=== PATIENT | male | born 1950 | race Asian ===

== ENCOUNTER 2016-11-05 14:07 | Inpatient (IN) | payer OTHER ==
[~2016-11-05] VITALS: Ht 165.1 cm; Wt 81.6 kg
[2016-11-05] MEDS ORDERED: MILK OF MA400 MG/51 ORAL (14:38)
[2016-11-05] MEDS ORDERED: FUROSEMIDE40 MG ORAL (14:38)
[2016-11-05] MEDS ORDERED: BISACODYL10 M1 RC (14:38)
[2016-11-05] MEDS ORDERED: DOCUSATE SODIU100 MG ORAL (14:38)
[2016-11-05] MEDS ORDERED: SPIRONOLACTONE25 MG ORAL (14:38)
[2016-11-05] MEDS ORDERED: ATIVAN0.5 MG ORAL (14:38)
[2016-11-05 15:54] VITALS: BP 94/72
[2016-11-05 16:01] LABS: TROPONIN I < 0.30 ng/mL (<=0.30)
[2016-11-05 16:04] LABS: ALBUMIN/GLOBULIN RATIO 1.1 (1.0-2.7); CALCIUM 9.2 mg/dL (8.6-10.2); GLOMERULAR FILTRATION RATE 33.8 mL/min (>60); POTASSIUM 4.6 mEQ/L (3.4-4.9); TOTAL PROTEIN 6.8 g/dL (6.6-8.7)
[2016-11-05 16:10] LABS: BASOPHILS % (AUTO) 1.2 % (0.0-2.0); CKMB 8.5 ng/mL (< 6.7); EOSINOPHILS % (AUTO) 0.4 % (0.0-3.0); LYMPHOCYTES % (AUTO) 21.5 % (20.0-45.0); MEAN CORPUSCULAR HEMOGLOBIN 32.2 PG (27.0-31.0); MEAN CORPUSCULAR HGB CONC 33.6 G/DL (32.0-36.0); MEAN CORPUSCULAR VOLUME 96 FL (80-99); MEAN PLATELET VOLUME 8.1 FL (6.5-10.1); MONOCYTES % (AUTO) 5.3 % (1.0-10.0); NEUTROPHILS % (AUTO) 71.6 % (45.0-75.0); PLATELET COUNT 191 K/UL (150-450); RED CELL DISTRIBUTION WIDTH 13.8 % (11.6-14.8); WHITE BLOOD COUNT 5.9 K/UL (4.8-10.8)
[2016-11-05 16:12] LABS: REFLEX LACTIC ACID YES OR NO YES
[2016-11-05 16:45] LABS: APPEARANCE,URINE CLEAR; KETONES,URINE NEGATIVE (NEGATIVE); LEUKOCYTE ESTERASE ,URINE NEGATIVE (NEGATIVE); NITRITE,URINE NEGATIVE (NEGATIVE); PH,URINE 5 (4.5-8.0); PROTEIN,URINE 1+ (NEGATIVE); UROBILINOGEN,URINE NORMAL MG/DL (0.0-1.0)
[2016-11-05] MEDS ORDERED: Ampicillin/Sulbactam Sod 3 GM in NS 110 ML IVPB ONE (16:45)
[2016-11-05] MEDS ORDERED: Unasyn 3gm Inj ONE (16:54)
[2016-11-05 16:55] LABS: HYALINE CASTS, URINE 60-80 /LPF; RBC,URINE 0-2 /HPF (0 - 0); WBC,URINE 0-2 /HPF (0 - 0)
[2016-11-05 16:56] LABS: BACTERIA,URINE FEW /HPF
[2016-11-05 17:11] VITALS: BP 99/78
[2016-11-05] MEDS ORDERED: LORazepam 0.5mg tab ORAL PRN (17:45)
[2016-11-05 18:48] VITALS: BP 119/85
--- NOTE | 2016-11-05 19:40 | Emergency Room Report ---
History of Present Illness General Chief Complaint: General Complaint Source: Patient Present Illness HPI 65-year-old male presents ED for evaluation. Patient is complaining of shortness of breath which started a few days ago. Also complaining swelling to his legs. Patient does have history of cellulitis to the legs and is currently being treated in the [facility]. Patient denies any chest pain. Denies any fevers or chills. No other aggravating or leading factors. Denies any other associated symptoms Allergies: Coded Allergies: No Known Allergies (Unverified , 11/05/16) Patient History Past Medical History: DM, HTN Past Surgical History: none Pertinent Family History: none Social History: Denies: smoking, alcohol use, drug use Immunizations: UTD Reviewed Nursing Documentation: PMH: Agreed, PSxH: Agreed Nursing Documentation-PMH Hx Cardiac Problems: Yes - high cholesterol Hx Hypertension: Yes Hx Diabetes: Yes Review of Systems All Other Systems: negative except mentioned in HPI Physical Exam Vital Signs Date Time Temp Pulse Resp B/P (MAP) Pulse Ox O2 Delivery O2 Flow Rate FiO2 11/05/16 13:48 96 18 119/80 97 Room Air 11/05/16 15:54 98.0 Sp02 EP Interpretation: reviewed, normal General Appearance: no apparent distress, alert, GCS 15, non-toxic Head: normocephalic, atraumatic Eyes: bilateral eye normal inspection, bilateral eye PERRL ENT: hearing grossly normal, normal pharynx, no angioedema, normal voice Neck: full range of motion, supple/symm/no masses Respiratory: chest non-tender, lungs clear, normal breath sounds, speaking full sentences Cardiovascular #1: regular rate, rhythm, no edema Cardiovascular #2: 2+ carotid (R), 2+ carotid (L), 2+ radial (R), 2+ radial (L) , 2+ dorsalis pedis (R), 2+ dorsalis pedis (L) Gastrointestinal: normal bowel sounds, non tender, soft, non-distended, no guarding, no rebound Rectal: deferred Genitourinary: normal inspection, no CVA tenderness Musculoskeletal: back normal, gait/station normal, normal range of motion, swelling - 2+ pitting edema b/l LE Neurologic: alert, oriented x3, responsive, motor strength/tone normal, sensory intact, speech normal Psychiatric: judgement/insight normal, memory normal, mood/affect normal, no suicidal/homicidal ideation Reflexes: 3+ bicep (R), 3+ bicep (L), 3+ tricep (R), 3+ tricep (L), 3+ knee (R) , 3+ knee (L) Skin: normal color, no rash, warm/dry, well hydrated, other - induration/ erythema bilateral LE Lymphatic: no adenopathy Medical Decision Making Diagnostic Impression: Primary Impression: Encounter for generalized patient complaints Additional Impressions: CHF exacerbation Qualified Codes: I50.9 - Heart failure, unspecified Sepsis Qualified Codes: A41.9 - Sepsis, unspecified organism ARF (acute renal failure) Qualified Codes: N17.9 - Acute kidney failure, unspecified Bilateral lower leg cellulitis ER Course Hospital Course 65-year-old male presents ED complaining of shortness of breath, leg swelling Differential diagnoses include: TX/unstable angina, contusion, muscle strain, PTX, rib fracture Clinical course Patient placed on stretcher. on gambling monitor. After initial history and physical I ordered labs, EKG, chest x-ray, labs reviewed- no leukocytosis, hemoglobin/hematocrit stable, BUN/creatinine elevated, troponins negative, BNP greater than 5000, lactate >4 Chest x-ray- pulmonary congestion EKG - sinus tachycardia Antibiotics given. Lasix given. Patient not given 30 mL per KG fluid bolus because of his severe congestive heart failure and fluid overload Case discussed with Dr. Barrera and he agreed to accept the patient to his service for further care and support I. I feel this is a highly complex case requiring extensive working including EKG/Rhythm strip, Xray/CT/US, Blood/urine lab work, repeat exams while in ED, and administration of strong opiates/narcotics for pain control, admission to hospital or close patient follow up. Diagnosis - CHF exacerbation, sepsis, ARF, bilateral LE cellulitis admitted to telemetry in serious condition Labs Test 11/05/16 14:55 11/05/16 15:58 11/05/16 16:06 White Blood Count 5.9 K/UL (4.8-10.8) Red Blood Count 4.40 M/UL (4.70-6.10) Hemoglobin 14.1 G/DL (14.2-18.0) Hematocrit 42.1 % (42.0-52.0) Mean Corpuscular Volume 96 FL (80-99) Mean Corpuscular Hemoglobin 32.2 PG (27.0-31.0) Mean Corpuscular Hemoglobin Concent 33.6 G/DL (32.0-36.0) Red Cell Distribution Width 13.8 % (11.6-14.8) Platelet Count 191 K/UL (150-450) Mean Platelet Volume 8.1 FL (6.5-10.1) Neutrophils (%) (Auto) 71.6 % (45.0-75.0) Lymphocytes (%) (Auto) 21.5 % (20.0-45.0) Monocytes (%) (Auto) 5.3 % (1.0-10.0) Eosinophils (%) (Auto) 0.4 % (0.0-3.0) Basophils (%) (Auto) 1.2 % (0.0-2.0) Sodium Level 123 mEQ/L (135-145) Potassium Level 4.6 mEQ/L (3.4-4.9) Chloride Level 82 mEQ/L (98-107) Carbon Dioxide Level 23 mEQ/L (20-30) Anion Gap 18 (5-15) Blood Urea Nitrogen 37 mg/dL (7-23) Creatinine 2.0 mg/dL (0.7-1.2) Estimat Glomerular Filtration Rate 33.8 mL/min (>60) Glucose Level 216 mg/dL (74-106) Lactic Acid Level 4.80 mmol/L (0.66-2.22) Calcium Level 9.2 mg/dL (8.6-10.2) Total Bilirubin 0.8 mg/dL (0.0-1.2) Aspartate Amino Transf (AST/SGOT) 81 U/L (5-40) Alanine Aminotransferase (ALT/SGPT) 67 U/L (3-41) Alkaline Phosphatase 160 U/L (40-129) Total Creatine Kinase 137 U/L (38-174) Creatine Kinase MB 8.5 ng/mL (< 6.7) Creatine Kinase MB Relative Index 6.2 Troponin I < 0.30 ng/mL (<=0.30) Pro-B-Type Natriuretic Peptide 5957 pg/mL (0-125) Total Protein 6.8 g/dL (6.6-8.7) Albumin 3.6 g/dL (3.5-5.2) Globulin 3.2 g/dL Albumin/Globulin Ratio 1.1 (1.0-2.7) Urine Color Yellow Urine Appearance Clear Urine pH 5 (4.5-8.0) Urine Specific [place] 1.020 (1.005-1.035) Urine Protein 1+ (NEGATIVE) Urine Glucose (UA) Negative (NEGATIVE) Urine Ketones Negative (NEGATIVE) Urine Occult Blood Negative (NEGATIVE) Urine Nitrite Negative (NEGATIVE) Urine Bilirubin Negative (NEGATIVE) Urine Urobilinogen Normal MG/DL (0.0-1.0) Urine Leukocyte Esterase Negative (NEGATIVE) Urine RBC 0-2 /HPF (0 - 0) Urine WBC 0-2 /HPF (0 - 0) Urine Squamous Epithelial Cells None /LPF (NONE/OCC) Urine Bacteria Few /HPF (NONE) Urine Hyaline Casts 60-80 /LPF (NONE) EKG Diagnostic Results Rate: tachycardiac Rhythm: NSR ST Segments: no acute changes ASA given to the pt in ED: No Rhythm Strip Diag. Results EP Interpretation: yes Rhythm: NSR, no PVC's, no ectopy Chest X-Ray Diagnostic Results Chest X-Ray Diagnostic Results : Chest X-Ray Ordered: Yes # of Views/Limited/Complete: 1 View Indication: Shortness of Breath EP Interpretation: Yes Interpretation: no pneumothorax, no acute cardiopulmonary disease, other - cardiomegaly. bilateral effusion Impression: Other - cardiomegaly with congestion Electronically Signed by: Electronically signed by Deon Ortez MD Last Vital Signs Date Time Temp Pulse Resp B/P (MAP) Pulse Ox O2 Delivery O2 Flow Rate FiO2 11/05/16 18:48 97.7 117 24 119/85 100 Room Air Status: improved Disposition: ADMITTED INPATIENT Condition: Serious Referrals: NON PHYSICIAN (PCP) DEON ORTEZ M.D. Nov 05, 2016 19:40
[2016-11-05 20:00] VITALS: BP 103/66
[2016-11-05] MEDS ORDERED: Vancomycin 1.5 GM/D5W 250ML IVPB ONE (20:00)
[2016-11-05] MEDS: Aspirin Baby 81mg ORAL SCH (20:16)
[2016-11-05] MEDS: Norco 5mg/325mg tab ORAL PRN (20:18)
[2016-11-05] MEDS ORDERED: Milk of Magnesia 30ml Ud ORAL PRN (21:00)
[2016-11-05] MEDS: Insulin NovoLOG Flexpen S/S (Mod) SUBQ SCH (21:10)
[2016-11-05] MEDS: Heparin 5000 units/ml inj SUBQ SCH (21:11)
[2016-11-05] MEDS ORDERED: Cefepime 1gm vial ONE (23:50)
[2016-11-06] VITALS: BP 122/73
[2016-11-06] MEDS: Cefepime HCl 1 GM in D5W 55 ML IVPB SCH ×2 (00:01→23:25)
[2016-11-06] MEDS ORDERED: METFORMIN HCL1000 M1 PO (02:08)
[2016-11-06] MEDS ORDERED: GEMFIBROZIL600 M1 PO (02:08)
[2016-11-06] MEDS ORDERED: QUINAPRIL HCL20 MG PO (02:08)
[2016-11-06] MEDS ORDERED: GLYBURIDE5 MG PO (02:08)
[2016-11-06] MEDS ORDERED: TRIAMTERENE-HC1 EAC5 PO (02:08)
--- NOTE | 2016-11-06 03:30 | Consultation ---
DATE OF CONSULTATION: 11/05/2016 CARDIOLOGY CONSULTATION CONSULTING PHYSICIAN: Hemal Virgen M.D. REQUESTING PHYSICIAN: Alin Alicea M.D. REASON FOR CONSULTATION: Congestive heart failure. History Of Present Illness: This 65-year-old male had a spider bite to his leg several weeks back. He was hospitalized and subsequently discharged to a retirement facility about a week ago. During the course of that period, his condition has worsened. His rash has gotten worse on both legs, his swelling has gotten worse, and he has weeping blisters. He has been increasingly congested and short of breath as well. Past Medical History: Hyperlipidemia, hypertensive heart disease, and type 2 diabetes mellitus. MEDICATIONS: Prior to admission, reviewed and reconciled. ALLERGIES: None. SOCIAL HISTORY: Denies smoking, alcohol, or substance abuse. FAMILY HISTORY: Noncontributory. Review Of Systems: No fevers. No chills. No cough or sputum production. There is no history of seizure or stroke. There is no history of thyroid disorder. His diabetes is managed with diet and oral therapy at times. He is unaware of his cholesterol level. He has not had any change in bowel habits. There is no history of prostate cancer. He denies prior history of heart disease that he is aware of. There is no history of blood clots in the legs. PHYSICAL EXAMINATION: General: He appears older than his stated age. He is in moderate distress. Vital Signs: Blood pressure 119/80, pulse 96, respirations 18, afebrile, and room air oxygen saturation 97%. HEENT: Normocephalic and atraumatic. Conjunctivae are pink. Sclerae are anicteric. Oropharynx clear. Neck: Supple. Jugular venous pressure is slightly elevated, but exam is limited. Lungs: Revealed diminished breath sounds. No wheezes or rales. There is no accessory muscle use. Cardiac: Regular rhythm and rate. Normal S1 and S2. There is a fourth heart sound. Point of maximum impulse laterally displaced. ABDOMEN: Soft and obese with mild ascites. Extremities: Revealed 3+ to 4+ bilateral pitting edema to the scrotum. Skin: Notable for weeping bullous rash on both lower extremities and induration distally. There is no ischemic change of the digits. NEUROLOGIC: Otherwise nonfocal. Gait is not assessed. Laboratory and diagnostic Data: White count 5.9 and hemoglobin is 14.1. Urinalysis, no active sediment, but there are casts. Sodium 123, potassium 4.6, chloride 82, bicarbonate 23, BUN 37, creatinine 2.0, and glucose 216. Lactic acid 4.8. AST and ALT are 81 and 67 with alkaline phosphatase of 160 and pro-natriuretic peptide of almost 6000. Troponin negative. Albumin 3.6. Chest x-ray reveals pulmonary venous congestion. EKG reveals sinus tachycardia with no acute ST changes. IMPRESSION: 1. Bilateral lower extremity cellulitis. 2. Acute systolic congestive heart failure. 3. Lower extremity venous stasis. 4. Hyponatremia. 5. Hypochloremia may be due to Aldactone. 6. Type 2 diabetes mellitus. 7. History of hypertension. 8. Renal failure, acute versus chronic. 9. Probable component of obstructive uropathy due to edema involving penis. 10. Secondary sinus tachycardia. PLAN: 1. Cardiac monitoring. 2. Ward catheter. 3. IV diuretic therapy. 4. Monitor electrolytes closely as well as renal function. 5. IV antibiotics. 6. Skin care. 7. Titration of anti-failure regimen based on clinical parameters. 8. Echocardiogram to assess left ventricular function. 9. Venous duplex scan if not recently done to assess for possible DVT in this clinical setting. Hemal Virgen M.D. DR: JAZIEL JOB#: [id number] CC: CLAIRE
[2016-11-06] MEDS: Norco 5mg/325mg tab ORAL PRN ×3 (03:51→21:35)
[2016-11-06 04:00] VITALS: BP 102/68
[2016-11-06] MEDS: Insulin NovoLOG Flexpen S/S (Mod) SUBQ SCH ×4 (06:03→21:34)
[2016-11-06] MEDS: Heparin 5000 units/ml inj SUBQ SCH ×3 (06:03→21:35)
[2016-11-06] MEDS ORDERED: NovoLOG Insulin Flexpen SUBQ SCH (06:30)
[2016-11-06 07:18] LABS: BASOPHILS % (AUTO) 1.7 % (0.0-2.0); EOSINOPHILS % (AUTO) 1.1 % (0.0-3.0); LYMPHOCYTES % (AUTO) 25.2 % (20.0-45.0); MEAN CORPUSCULAR HEMOGLOBIN 31.4 PG (27.0-31.0); MEAN CORPUSCULAR HGB CONC 33.3 G/DL (32.0-36.0); MEAN CORPUSCULAR VOLUME 94 FL (80-99); MEAN PLATELET VOLUME 7.2 FL (6.5-10.1); PLATELET COUNT 204 K/UL (150-450); RED BLOOD COUNT 4.51 M/UL (4.70-6.10); RED CELL DISTRIBUTION WIDTH 14.3 % (11.6-14.8); WHITE BLOOD COUNT 7.2 K/UL (4.8-10.8)
[2016-11-06 07:39] LABS: ALBUMIN/GLOBULIN RATIO 1.3 (1.0-2.7); CALCIUM 11.3 mg/dL (8.6-10.2); CREATININE 2.1 mg/dL (0.7-1.2); POTASSIUM 4.8 mEQ/L (3.4-4.9)
[2016-11-06 07:51] LABS: THYROID STIMULATING HORMONE 2.66 uIU/mL (0.300-4.500)
[2016-11-06 08:00] VITALS: BP 101/70
[2016-11-06] MEDS: Aspirin Baby 81mg ORAL SCH (09:09)
--- NOTE | 2016-11-06 09:48 | Diagnostic Imaging Report ---
Indication: SOB Technique: One view of the chest Comparison: none Findings: The heart is enlarged. There are bilateral pleural effusions. There is mild interstitial congestion Impression: Evidence of congestive heart failure, with cardiomegaly, mild interstitial congestion, bilateral pleural effusions This agrees with the preliminary interpretation provided by the emergency room physician
[2016-11-06] MEDS ORDERED: NS 275ml ONE (10:59)
[2016-11-06] MEDS ORDERED: Tubing IV Secondary IV ONE (10:59)
--- NOTE | 2016-11-06 11:22 | Wound Care Consultation ---
Wound Assessment Wound Assessment #1: Wound Number: 1 Wound Present on Admission: Yes New Wound: No Status Change of Wound: No Wound Location Body Site Modif: right, lower Wound Location Body Site: leg Wound Type: blister - large ruptured and weeping blisters Nisha Test: Does not Nisha Edema Degree: 4+ marked deep indentation Percent of Wound [place]/Red: 100 Wound Drainage Amount: Copious - clear Wound Drainage Odor: None/Absent Tissue Surrounding Wound: Edematous - macerated Wound General Appearance: Reddened, Draining - weeping Wound Assessment #2: Wound Number: 2 Wound Present on Admission: Yes New Wound: No Status Change of Wound: No Wound Location Body Site Modif: left, lower Wound Location Body Site: leg Wound Type: other - open wound with slough present, scattered wepping blisters and ruptured blisters. Nisha Test: Does not Nisha Edema Degree: 4+ marked deep indentation Wound Thickness: Full Thickness Wound Length: 6.5 Wound Width: 5.0 Wound Depth: utd Percent of Wound [place]/Red: 20 Percent of Wound Bed Yellow/Wh: 80 Wound Drainage Description: Clear Wound Drainage Amount: Copious Wound Drainage Odor: None/Absent Tissue Surrounding Wound: Edematous - macerated Wound General Appearance: Reddened, Draining, Necrotic - yellow slough Wound Comment #1 Right lower leg ruptured and weeping large blisters #2 Left lower leg open wound unstageable, and left lower leg scattered ruptured weeping blisters. Recommendation. -Follow up with MD for any furthers for cellulitis of BLE. -Local wound care as ordered. -Turn and reposition. -Keep lower extremities clean and dry. -Optimize nutrition. -Keep clean and dry. -Assess and notify MD for any changes of condition to skin noted. ALISON WALKER Nov 06, 2016 11:22
--- NOTE | 2016-11-06 11:35 | Diagnostic Imaging Report ---
Indication: SOB Technique: One view of the chest Comparison: 11/05/2016 Findings: Yomi, bilateral small moderate pleural effusions, left basilar atelectasis, mild interstitial congestion are all unchanged from the previous exam Impression: Unchanged, over one day, findings as above.
[2016-11-06 12:00] VITALS: BP 99/74
[2016-11-06 16:00] VITALS: BP 107/65
[2016-11-06 16:52] LABS: APPEARANCE,URINE CLEAR; KETONES,URINE NEGATIVE (NEGATIVE); LEUKOCYTE ESTERASE ,URINE NEGATIVE (NEGATIVE); NITRITE,URINE NEGATIVE (NEGATIVE); PH,URINE 5 (4.5-8.0); PROTEIN,URINE 2+ (NEGATIVE); UROBILINOGEN,URINE NORMAL MG/DL (0.0-1.0)
--- NOTE | 2016-11-06 17:00 | History and Physical Report ---
DATE OF ADMISSION: 11/05/2016 History Of Present Illness: This is a 65-year-old male, who reports history of developing some sort of infection all over his leg several weeks ago. He states he thought he was bitten by a spider on the left ankle on 10/12/2016 and was then seen at [facility]. Several days later, he also noted that his sodium was low, he was given IV treatments. He was discharged on 10/16/2016; however, he returned back to that hospital the following day. He was then discharged to nursing facility with ongoing blistering of his lower extremities. The patient states he has been getting more short of breath and all his tests have been negative in terms of renal function. Past History: Hyperlipidemia, hypertensive cardiovascular heart disease, diabetes mellitus. He does not know about a history of heart failure or renal problems. Home Medications: Gemfibrozil, metformin, glyburide, quinapril, and triamterene HCTZ. ALLERGIES: None. SOCIAL HISTORY: No history of alcohol or tobacco usage. FAMILY HISTORY: Noncontributory. Review Of Systems: Denies any headaches, hematemesis, melena, hematochezia, night sweats, or weight loss. PHYSICAL EXAMINATION: GENERAL: Reveals a 65-year-old male. HEENT: Unremarkable. CHEST: Diminished breath sounds bilaterally. HEART: Heart sounds normal. ABDOMEN: Soft. Genitourinary: There is 3+ edema bilaterally up to the scrotum. His penis is swollen. Scrotum is swollen. Extremities: There is a weeping bullous rash in both lower extremities. Laboratory And Diagnostic Data: Lab testing was notable for hemoglobin of 14, otherwise CBC is normal. Sodium this morning is 119 and creatinine is 2.1. Calcium is 11.3. Lactic acid 4.6. AST and ALT mildly elevated. Alkaline phosphatase 140. Albumin is 4. X-ray of the chest with evidence of cardiomegaly and congestive heart failure. IMPRESSION: 1. New onset congestive heart failure. 2. Diabetes. 3. Renal dysfunction. 4. Hyponatremia. 5. Hypochloremia. 6. Bilateral lower extremity cellulitis. 7. Lactic acidemia. Discussion: We will admit to the hospital. I note that previous ultrasound had shown right renal calculus 6 mm and a left renal cyst. His BNP has been elevated as an outpatient as well. I suspect he has congestive heart failure. The patient will require dialysis. I will consult Nephrology as well. He is hyponatremic, which will be a challenge in terms of medical management. Continue IV antibiotics. The patient has been started on cefepime and vancomycin. The patient may need 3% infusion however with his heart failure this may be problematic. Dialysis may be a consideration. The patient is Full Code. Discussed with the patient and . Alin Alicea M.D. DR: JOHN JOB#: [id number] CC:
[2016-11-06 17:10] LABS: BACTERIA,URINE FEW /HPF; RBC,URINE 0-2 /HPF (0 - 0); WBC,URINE 0-2 /HPF (0 - 0)
[2016-11-06 17:11] LABS: CREATININE, RANDOM URINE 145.8 mg/dL
--- NOTE | 2016-11-06 18:16 | Cardiology Report ---
APPROVED REPORT EXAM: Two-dimensional and M-mode echocardiogram with Doppler and color Doppler. INDICATION Congestive Heart Failure M-Mode DIMENSIONS IVSd0.9 (0.7-1.1cm)Left Atrium (MM)5.0 (1.6-4.0cm) LVDd5.5 (3.5-5.6cm)Aortic Root2.8 (2.0-3.7cm) PWd0.9 (0.7-1.1cm)Aortic Cusp Exc.0.8 (1.5-2.0cm) LVDs4.9 (2.5-4.0cm) PWs1.0 cm Technically limited and difficult study due to poor acoustical windows. Severe left ventricular enlargement. Global left ventricular hypokinesia. Left ventricular ejection fraction is estimated at 10%. Ischemic cardiomyopathy cannot be excluded. No left ventricular hypertrophy. Large posterior pleural effusion. Moderate left atrial enlargement by 2D. Mild left atrial enlargement by 2D. Aortic valve calcification with decreased cusp excursion c/w aortic stenosis. Thickened mitral valve leaflets with normal excursion. Mild mitral annulus and aortic root calcification. Pulmonic valve is well visualized. Normal tricuspid valve structure. IVC dilated at 2.4cm non-collapsible with respiration indicate increased RA pressure RAP -20 mmHg). A color flow and spectral Doppler study was performed and revealed: Mild aortic regurgitation. Peak aortic valve gradient of 19 mmHg and a mean of 10 mmHg. Aortic valve area 1.1 cm2 calculated by continuity equation, possibly pseudo-stenosis due to decreased LV systolic function. Severe mitral regurgitation. Mitral diastolic velocities suggest reduced left ventricular relaxation c/w diastolic dysfunction grade 3. Severe tricuspid regurgitation. Tricuspid systolic velocities suggests peak right ventricular systolic pressure of 56mmHg. Consistent with Severe pulmonary hypertension. Pulmonic regurgitation present.
--- NOTE | 2016-11-06 19:04 | Cardiology Report ---
APPROVED REPORT EKG Measurement Heart [id number] Sinus tachycardia Left atrial enlargement Incomplete left bundle branch block Abnormal ECG
[2016-11-06 20:48] VITALS: BP 100/65
--- NOTE | 2016-11-06 21:15 | Consultation ---
DATE OF CONSULTATION: 11/06/2016 INFECTIOUS DISEASES CONSULTATION CONSULTING PHYSICIAN: Cj Pfeiffer M.D. REFERRING PHYSICIAN: Alin Alicea M.D. REASON FOR CONSULTATION: Lower extremity cellulitis. History Of Present Illness: This is a 65-year-old gentleman with history of diabetes, hypertension, and hypercholesterolemia who came in with shortness of breath and nausea. He was found to have bilateral lower extremity cellulitis as well as congestive heart failure and an Infectious Diseases consultation has been obtained for antibiotics. PAST MEDICAL HISTORY: 1. History of diabetes. 2. History of hypertension. 3. Hypercholesterolemia. 4. History of cataract surgery. Medications: As an inpatient, he is on cefepime, Lasix, subcutaneous heparin, milk of magnesia, insulin, [place], aspirin, IV vancomycin, Tylenol, and Ativan. ALLERGIES: No known drug allergies. Social History: He used to be a smoker. He does not smoke anymore. No history of alcohol or drug use. FAMILY HISTORY: Positive for pancreatic cancer. Review Of Systems: Respiratory: He denies any fever or chills. He denies any cough. He has shortness of breath. No chest pain. Cardiac: No chest pain. No palpitations. No dizziness. No syncope. Gastrointestinal: He did have nausea. No vomiting. No abdominal pain or diarrhea. PHYSICAL EXAMINATION: Vital Signs: Temperature of 97.3 degrees, T-max of 98 degrees, pulse of 80, respiratory rate of 19, blood pressure 99/74, and O2 saturation of 100%. HEENT: Pupils equally reactive to light and accommodation. Mouth appears clean without thrush. NECK: Supple. No adenopathy. No JVD. CARDIOVASCULAR: Regular rate and rhythm. No murmurs. LUNGS: Clear to auscultation bilaterally. No crackles. No wheezes. ABDOMEN: Soft and nontender. No organomegaly. Extremities: No cyanosis. No clubbing. Edema noted bilaterally. Right leg multiple erythematous ulcers noted. Laboratory Data: White count 7.2, hemoglobin 14.2, hematocrit 42.5, MCV 94, and platelet count of 204,000. Sodium 119, potassium 4.8, chloride 81, bicarbonate 22, BUN 41, creatinine 2.1, glucose 193, calcium 11.3, AST 48, ALT 55, alkaline phosphatase 140, total protein 7, and albumin 4. UA is showing 0 to 2 white cells. Chest x-ray showing evidence of congestive heart failure with mild congestion and pleural effusions. ASSESSMENT: 1. This is a 65-year-old gentleman with history of diabetes, hypertension, and hypercholesterolemia, who comes in with bilateral lower extremity cellulitis. 2. He also has renal failure. 3. Diabetes. PLAN: 1. Continue cefepime. 2. Discontinue vancomycin. 3. We will start the patient on linezolid. 4. We will order leg wound cultures. 5. We will follow up cultures and adjust antibiotics accordingly. I would like to thank Dr. Alicea for this consultation. Cj Pfeiffer M.D. DR: CARMELINA JOB#: [id number] CC: Alin Alicea M.D.; Fax#: [phone]
[2016-11-06] MEDS: Tamsulosin 0.4mg cap ORAL SCH (21:23)
--- NOTE | 2016-11-06 22:15 | Consultation ---
DATE OF CONSULTATION: 11/06/2016 NEPHROLOGY CONSULTATION CONSULTING PHYSICIAN: Davis Mock M.D. REFERRING PHYSICIAN: Alin Alicea M.D. Reason For Consultation: I am asked to evaluate the patient for renal failure and hyponatremia. History Of Present Illness: The patient has a history of anasarca, CHF, and has a low ejection fraction. He has recently apparently had a spider bite and developed cellulitis of the legs and has large dressings on his legs. He is now living in a assisted facility. He had a BUN of 20, creatinine of 1.17, and a sodium of 133 on 10/31/2016, but currently, his laboratories are much worse with a sodium of 119, BUN 41, creatinine 2.1, and a calcium of 11.3. He has anasarca and decline in condition. He has had hyponatremia in the past. ALLERGIES: None known. SURGERIES: Cataract bilaterally. Habits: He was a smoker most of his adult life half to 1 pack a day, quit about 3 months ago. No alcohol or drugs. SOCIAL HISTORY: Currently, he was living in an [facility]. Medications: Medications prior to admission are listed in the chart include the following: DuoNeb by HHN every 4 hours as needed, fleets phospho-soda enema, Lasix 40 mg daily, milk of magnesia p.r.n., bisacodyl p.r.n., DSS 100 mg daily, Ativan 0.5 mg every 8 hours as needed, Aldactone 25 mg daily, acetaminophen 2 tablets every 6 hours p.r.n., multivitamins with minerals daily, Rocephin 1 g daily, Silvadene cream to wound, vitamin C 500 mg daily, and Zithromax 500 mg daily. There is also a prior medication list apparently prior to recent EC, which included gemfibrozil 600 mg b.i.d., metformin 1000 mg b.i.d., glyburide 10 mg b.i.d., quinapril 20 mg daily, and triamterene and hydrochlorothiazide 37.5/25 mg daily. SYSTEM REVIEW: Head, Eyes, Ears, Nose, And Throat: History of cataract surgery. No laser to the eyes. No definite glaucoma. Hearing is good. Endocrine: History of obesity and diabetes. Not aware of any thyroid disease. Pulmonary: He has shortness of breath associated with CHF. He is a former smoker. No known TB. Cardiac: History of chronic congestive heart failure. Per nursing, ejection fraction is in the 20s today. GASTROINTESTINAL: No GI bleeding or ulcers. Genitourinary: He has phimosis of the penis and slow urine stream and some incontinence and difficulty voiding. NEUROLOGIC: No CVA or seizures. PHYSICAL EXAMINATION: General: The patient is an alert, obese man, sitting at the edge of the bed, not in acute distress, but chronically ill. Vital Signs: Temperature 97.3, pulse 80, respirations 19, and blood pressure 99/74. Head, Eyes, Ears, Nose, And Throat,: Sclerae are nonicteric. Ocular motions intact in all directions. Oral mucosa moist. NECK: No adenopathy. LUNGS: Diminished breath sounds at the bases. No rales or rhonchi. HEART: Rhythm is regular. I hear no murmur. ABDOMEN: Obese and soft. I am unable to feel liver or spleen. Genitourinary: There is severe phimosis of the penis. Testes are normal. Extremities: Show 2 to 3+ edema. There are large dressings on the legs covering leg ulcers. NEUROLOGIC: He is alert and oriented. Cranial nerves are intact. Pertinent Labs: Today, sodium 119, potassium 4.8, chloride 81, CO2 22, BUN 41, and creatinine 2.1. Calcium 11.3, prior calcium 9.2. Lactic acid 4.6. Albumin is 4.0. TSH 2.66. Urinalysis shows 0 to 2 red cells, 0 to 2 white cells per high-power field, 60 to 80 hyaline casts, and 1+ protein. IMPRESSION: 1. Acute kidney injury likely from obstruction and due to his phimosis possibly related to diuretics. 2. Hyponatremia secondary to diuretics and free water intake. He admits to moderate amounts of free water. 3. Acute on chronic congestive heart failure with systolic dysfunction. 4. Severe cellulitis of the leg. 5. Phimosis of the penis. Plan: The patient will need urologic consultation and likely Ward catheter. I would restrict his fluids severely to prevent hyponatremia. We will need a gradual diuresis and treatment of his cellulitis, elevation of his legs, and wound care. Davis Mock M.D. DR: SATNAM JOB#: [id number] CC:
[2016-11-07 00:16] VITALS: BP 104/75
--- NOTE | 2016-11-07 02:00 | Consultation ---
DATE OF CONSULTATION: 11/06/2016 CONSULTING PHYSICIAN: Mikal Melgoza M.D. REFERRING PHYSICIAN: Alin Alicea M.D. and Hemal Virgen M.D. Reason For Consultation: For evaluation of difficult catheterization. History Of Present Illness: This is a 65-year-old male. He was admitted to the hospital because of worsening lower extremity edema and CHF exacerbation. He has a history of difficult catheterization. Urology evaluation is requested. He is passing urine, however, he does have penile edema. Past Medical History: Significant for above, also hyperlipidemia, cardiovascular disease, and diabetes. MEDICATIONS: Current medication list was reviewed. ALLERGIES: None. PHYSICAL EXAMINATION: GENERAL: Elderly male. VITAL SIGNS: Stable. ABDOMEN: Soft. Genitourinary: Reveals significant penile edema. Glans is not visible. EXTREMITIES: Also edematous. Laboratory Data: Sodium is 119, BUN 41, and creatinine 2.1, baseline creatinine is unknown to me. White count 7.2, hemoglobin 14.2. UA showed 2+ protein. Diagnostic Imaging Studies: The patient had a chest x-ray, which was reviewed. IMPRESSION: 1. Urinary retention. 2. Penile edema. 3. Proteinuria. 4. Possible neurogenic bladder. 5. Renal insufficiency, acute on chronic. Plan And Discussion: At the beside, I was able to squeeze out some of the penile edema exposing the glans and subsequently dilate the urethral meatus and pass a 16-Tamazight Ward catheter. There was return of about 200 to 300 mL of meghna urine. Ward was left to gravity drainage. The patient's renal function will be monitored. I will also add Flomax. Thank you for this consultation. Mikal Melgoza M.D. DR: Francisco JOB#: [id number] CC: CLAIRE
[2016-11-07 04:04] VITALS: BP 112/68
--- NOTE | 2016-11-07 05:15 | Progress Note ---
DATE: 11/06/2016 CARDIOLOGY PROGRESS NOTE Subjective: The patient continues to feel short of breath. His legs remained swollen. He is not able to mobilize due to shortness of breath. Ward catheter was placed by Urology followup because of severe phimosis due to edema and difficulty with voiding. An echocardiogram obtained revealed ejection fraction of 10% with severe mitral regurgitation. OBJECTIVE: Vital signs: Blood pressure is 107/65, pulse rate 108, respiratory rate 19, and afebrile. NECK: Jugular venous pressure is elevated. LUNGS: With rales, a few. Diminished breath sounds. Cardiac: Regular rhythm and rate. Normal S1, increased splitting S2. A 2/6 holosystolic apical murmur. ABDOMEN: Soft and nontender. EXTREMITIES: With 4+ weeping bilateral lower extremity edema. Laboratory Data: White count is 7.2 and hemoglobin 14.2. Sodium is 119, potassium 4.8, bicarbonate 22, chloride 81, BUN 41, and creatinine 2.1. TSH is 2.6. IMPRESSION: 1. Bilateral lower extremity cellulitis. 2. Acute on chronic systolic congestive heart failure with cardiogenic shock. 3. Hyponatremia. 4. Hypochloremia. 5. Lower extremity venous stasis. 6. Type 2 diabetes mellitus. 7. Low range blood pressure due to poor cardiac output. PLAN: 1. Continue cautious diuresis efforts with Ward catheter in place. 2. Replace potassium and magnesium as needed. 3. Antimicrobials. 4. Deep venous thrombosis prophylaxis. 5. Add hydralazine at very low doses and administer only if blood pressure trend can tolerate. 6. Renal ultrasound pending as well. 7. Condition remains serious and prognosis guarded due to severe cardiomyopathy. Hemal Virgen M.D. DR: Azul JOB#: [id number] CC: CLAIRE
[2016-11-07] MEDS: HydrALAZINE 10mg Tab ORAL SCH ×3 (06:18→17:45)
[2016-11-07] MEDS: Norco 5mg/325mg tab ORAL PRN ×2 (06:18→20:00)
[2016-11-07] MEDS: Heparin 5000 units/ml inj SUBQ SCH ×3 (06:21→22:00)
[2016-11-07] MEDS: Insulin NovoLOG Flexpen S/S (Mod) SUBQ SCH ×4 (06:22→20:09)
[2016-11-07 07:15] LABS: BASOPHILS % (AUTO) 1.9 % (0.0-2.0); EOSINOPHILS % (AUTO) 2.1 % (0.0-3.0); LYMPHOCYTES % (AUTO) 23.9 % (20.0-45.0); MEAN CORPUSCULAR HEMOGLOBIN 30.8 PG (27.0-31.0); MEAN CORPUSCULAR HGB CONC 32.7 G/DL (32.0-36.0); MEAN CORPUSCULAR VOLUME 94 FL (80-99); MEAN PLATELET VOLUME 7.2 FL (6.5-10.1); NEUTROPHILS % (AUTO) 60.2 % (45.0-75.0); PLATELET COUNT 198 K/UL (150-450); RED BLOOD COUNT 4.63 M/UL (4.70-6.10); RED CELL DISTRIBUTION WIDTH 13.6 % (11.6-14.8); WHITE BLOOD COUNT 7.9 K/UL (4.8-10.8)
[2016-11-07 07:36] LABS: CALCIUM 9.2 mg/dL (8.6-10.2); CREATININE 1.5 mg/dL (0.7-1.2); GLOMERULAR FILTRATION RATE 47.1 mL/min (>60); POTASSIUM 4.5 mEQ/L (3.4-4.9)
--- NOTE | 2016-11-07 08:12 | Pulmonology Progress Note ---
Assessment/Plan Assessment/Plan 1. New onset congestive heart failure. EF 10% 2. Diabetes. 3. Renal dysfunction. Cr now 1.5 after cortez 4. Hyponatremia. Improved; Na 123 5. Hypochloremia. 6. Bilateral lower extremity cellulitis. 7. Lactic acidemia. Discussion: Continue IV antibiotics. The patient has been started on cefepime and vancomycin. The patient is Full Code. Discussed with the patient and . Continue cortez Await cardiac followup re: severely low EF Continue diuresis Subjective Interval Events: Cortez in place; having adequate urine output; echo results noted Constitutional: Reports: no symptoms HEENT: Repors: no symptoms Respiratory: Reports: shortness of breath Cardiovascular: Reports: no symptoms Gastrointestinal/Abdominal: Reports: nausea Genitourinary: Reports: no symptoms Allergies: Coded Allergies: No Known Allergies (Unverified , 11/05/16) Objective Last 24 Hour Vital Signs Date Time Temp Pulse Resp B/P (MAP) Pulse Ox O2 Delivery O2 Flow Rate FiO2 11/07/16 06:18 134/56 11/07/16 04:04 98.6 107 18 112/68 98 Nasal Cannula 11/07/16 04:00 96 11/07/16 00:16 98.6 104 18 104/75 98 Nasal Cannula 11/07/16 00:00 104 11/06/16 20:48 98.6 102 18 100/65 98 Nasal Cannula 11/06/16 20:00 106 11/06/16 16:00 98.9 65 19 107/65 100 Nasal Cannula 11/06/16 16:00 108 11/06/16 12:00 97.3 80 19 99/74 100 Nasal Cannula 11/06/16 12:00 100 11/06/16 10:07 97.0 General Appearance: no acute distress HEENT: normocephalic Respiratory/Chest: chest wall non-tender, decreased breath sounds Cardiovascular: normal peripheral pulses, normal rate Abdomen: normal bowel sounds, soft, non tender Extremities: other - dressings in place Microbiology Date/Time Source Procedure Growth Status 11/05/16 14:40 Blood Blood Culture - Preliminary NO GROWTH AFTER 24 HOURS Resulted 11/05/16 14:30 Blood Blood Culture - Preliminary NO GROWTH AFTER 24 HOURS Resulted 11/05/16 21:00 Leg Right Gram Stain - Final Resulted 11/05/16 21:00 Leg Right Wound Culture Pending Resulted Laboratory Tests 11/06/16 14:00: Urine Color Yellow, Urine Appearance Clear, Urine pH 5, Urine Specific [place] 1.020, Urine Protein 2+H, Urine Glucose (UA) Negative, Urine Ketones Negative, Urine Occult Blood Negative, Urine Nitrite Negative, Urine Bilirubin Negative, Urine Urobilinogen Normal, Urine Leukocyte Esterase Negative, Urine RBC 0-2H, Urine WBC 0-2, Urine Squamous Epithelial Cells None, Urine Bacteria Few, Urine Hyaline Casts 10-15H, Urine Fine Granular Casts , Urine Osmolality 406L, Urine Random Total Protein 31, Urine Random Sodium 10, Urine Creatinine 145.8 11/07/16 05:00: White Blood Count 7.9, Red Blood Count 4.63L, Hemoglobin 14.3, Hematocrit 43.6, Mean Corpuscular Volume 94, Mean Corpuscular Hemoglobin 30.8, Mean Corpuscular Hemoglobin Concent 32.7, Red Cell Distribution Width 13.6, Platelet Count 198, Mean Platelet Volume 7.2, Neutrophils (%) (Auto) 60.2, Lymphocytes (%) (Auto) 23.9, Monocytes (%) (Auto) 12.0H, Eosinophils (%) (Auto) 2.1, Basophils (%) ( Auto) 1.9, Sodium Level 123L, Potassium Level 4.5, Chloride Level 82L, Carbon Dioxide Level 19L, Anion Gap 22H, Blood Urea Nitrogen 38H, Creatinine 1.5H, Estimat Glomerular Filtration Rate 47.1, Glucose Level 123H, Calcium Level 9.2, Pro-B-Type Natriuretic Peptide 6912H Current Medications Medications (Trade) Dose Ordered Sig/Jonny Route PRN Reason Start Time Stop Time Status Last Admin Dose Admin Acetaminophen (Tylenol) 650 mg Q4H PRN ORAL fever, mild pain, headache 11/05/16 17:45 12/05/16 17:44 Acetaminophen/ Hydrocodone Bitart ([place] 5/325) 1 tab Q4H PRN ORAL Moderate Pain (Pain Scale 4-6) 11/05/16 20:00 11/12/16 19:59 11/07/16 06:18 Aspirin (ASA) 81 mg DAILY ORAL 11/05/16 18:00 12/05/16 17:59 11/06/16 09:09 Cefepime HCl 1 gm/ Dextrose 55 ml @ 110 mls/hr Q24H IVPB 11/05/16 23:00 11/12/16 22:59 11/06/16 23:25 Dextrose (Dextrose 50%) STAT PRN IV Hypoglycemia 11/05/16 17:45 12/05/16 17:44 Furosemide (Lasix) 40 mg Q12HR IV 11/05/16 23:00 12/05/16 22:59 11/06/16 21:23 Heparin Sodium (Porcine) (Heparin 5000 units/ml) 5,000 units EVERY 8 HOURS SUBQ 11/05/16 22:00 12/05/16 21:59 11/07/16 06:21 Hydralazine HCl (Apresoline) 10 mg Q6HR ORAL 11/07/16 06:00 12/07/16 05:59 11/07/16 06:18 Insulin Aspart (NovoLOG) BEFORE MEALS AND HS SUBQ 11/05/16 21:00 12/05/16 20:59 11/07/16 06:22 Linezolid (Zyvox) 600 mg EVERY 12 HOURS ORAL 11/06/16 21:00 11/11/16 20:59 11/06/16 21:23 Lorazepam (Ativan) 0.5 mg Q8H PRN ORAL anxiety 11/05/16 17:45 11/12/16 17:44 11/06/16 09:07 Magnesium Hydroxide (Mom) 30 ml HSPRN PRN ORAL Constipation 11/05/16 21:00 12/05/16 20:59 Tamsulosin HCl (Flomax) 0.4 mg BEDTIME ORAL 11/06/16 21:00 12/06/16 20:59 11/06/16 21:23 Alin Alicea MD Nov 07, 2016 08:12
[2016-11-07 08:19] VITALS: BP 108/65
[2016-11-07] MEDS: Aspirin Baby 81mg ORAL SCH (08:55)
--- NOTE | 2016-11-07 09:38 | Urology Progress Note ---
Assessment/Plan Assessment/Plan 1. Urinary retention. 2. Penile edema. 3. Proteinuria. 4. Possible neurogenic bladder. 5. Renal insufficiency, acute on chronic, improved. cortez care flomax monitor renal fxn voiding trial later Subjective Allergies: Coded Allergies: No Known Allergies (Unverified , 11/05/16) Subjective all noted Objective Last 24 Hour Vital Signs Date Time Temp Pulse Resp B/P (MAP) Pulse Ox O2 Delivery O2 Flow Rate FiO2 11/07/16 08:19 96.6 94 20 108/65 100 4.0 11/07/16 06:18 134/56 11/07/16 04:04 98.6 107 18 112/68 98 Nasal Cannula 11/07/16 04:00 96 11/07/16 00:16 98.6 104 18 104/75 98 Nasal Cannula 11/07/16 00:00 104 11/06/16 20:48 98.6 102 18 100/65 98 Nasal Cannula 11/06/16 20:00 106 11/06/16 16:00 98.9 65 19 107/65 100 Nasal Cannula 11/06/16 16:00 108 11/06/16 12:00 97.3 80 19 99/74 100 Nasal Cannula 11/06/16 12:00 100 11/06/16 10:07 97.0 Intake and Output 11/07/16 11/08/16 19:00 07:00 Intake Total 120 ml Balance 120 ml Intake Oral 120 ml Microbiology Date/Time Source Procedure Growth Status 11/05/16 14:40 Blood Blood Culture - Preliminary NO GROWTH AFTER 24 HOURS Resulted 11/05/16 18:00 Nasal Nares MRSA Culture - Final NO METHICILLIN RESISTANT STAPH AUREUS... Complete 11/05/16 21:00 Leg Right Gram Stain - Final Resulted 11/05/16 21:00 Leg Right Wound Culture Pending Resulted Current Medications Medications (Trade) Dose Ordered Sig/Jonny Route PRN Reason Start Time Stop Time Status Last Admin Dose Admin Acetaminophen (Tylenol) 650 mg Q4H PRN ORAL fever, mild pain, headache 11/05/16 17:45 12/05/16 17:44 Acetaminophen/ Hydrocodone Bitart ([place] 5/325) 1 tab Q4H PRN ORAL Moderate Pain (Pain Scale 4-6) 11/05/16 20:00 11/12/16 19:59 11/07/16 06:18 Aspirin (ASA) 81 mg DAILY ORAL 11/05/16 18:00 12/05/16 17:59 11/07/16 08:55 Cefepime HCl 1 gm/ Dextrose 55 ml @ 110 mls/hr Q24H IVPB 11/05/16 23:00 11/12/16 22:59 11/06/16 23:25 Dextrose (Dextrose 50%) STAT PRN IV Hypoglycemia 11/05/16 17:45 12/05/16 17:44 Furosemide (Lasix) 40 mg Q12HR IV 11/05/16 23:00 12/05/16 22:59 11/07/16 08:55 Heparin Sodium (Porcine) (Heparin 5000 units/ml) 5,000 units EVERY 8 HOURS SUBQ 11/05/16 22:00 12/05/16 21:59 11/07/16 06:21 Hydralazine HCl (Apresoline) 10 mg Q6HR ORAL 11/07/16 06:00 12/07/16 05:59 11/07/16 06:18 Insulin Aspart (NovoLOG) BEFORE MEALS AND HS SUBQ 11/05/16 21:00 12/05/16 20:59 11/07/16 06:22 Linezolid (Zyvox) 600 mg EVERY 12 HOURS ORAL 11/06/16 21:00 11/11/16 20:59 11/07/16 08:55 Lorazepam (Ativan) 0.5 mg Q8H PRN ORAL anxiety 11/05/16 17:45 11/12/16 17:44 11/06/16 09:07 Magnesium Hydroxide (Mom) 30 ml HSPRN PRN ORAL Constipation 11/05/16 21:00 12/05/16 20:59 Ondansetron HCl (Zofran) 4 mg Q6H PRN IVP Nausea & Vomiting 11/07/16 09:00 12/07/16 08:59 11/07/16 08:55 Tamsulosin HCl (Flomax) 0.4 mg BEDTIME ORAL 11/06/16 21:00 12/06/16 20:59 11/06/16 21:23 Laboratory Tests 11/06/16 14:00: Urine Color Yellow, Urine Appearance Clear, Urine pH 5, Urine Specific [place] 1.020, Urine Protein 2+H, Urine Glucose (UA) Negative, Urine Ketones Negative, Urine Occult Blood Negative, Urine Nitrite Negative, Urine Bilirubin Negative, Urine Urobilinogen Normal, Urine Leukocyte Esterase Negative, Urine RBC 0-2H, Urine WBC 0-2, Urine Squamous Epithelial Cells None, Urine Bacteria Few, Urine Hyaline Casts 10-15H, Urine Fine Granular Casts , Urine Osmolality 406L, Urine Random Total Protein 31, Urine Random Sodium 10, Urine Creatinine 145.8 11/07/16 05:00: White Blood Count 7.9, Red Blood Count 4.63L, Hemoglobin 14.3, Hematocrit 43.6, Mean Corpuscular Volume 94, Mean Corpuscular Hemoglobin 30.8, Mean Corpuscular Hemoglobin Concent 32.7, Red Cell Distribution Width 13.6, Platelet Count 198, Mean Platelet Volume 7.2, Neutrophils (%) (Auto) 60.2, Lymphocytes (%) (Auto) 23.9, Monocytes (%) (Auto) 12.0H, Eosinophils (%) (Auto) 2.1, Basophils (%) ( Auto) 1.9, Sodium Level 123L, Potassium Level 4.5, Chloride Level 82L, Carbon Dioxide Level 19L, Anion Gap 22H, Blood Urea Nitrogen 38H, Creatinine 1.5H, Estimat Glomerular Filtration Rate 47.1, Glucose Level 123H, Calcium Level 9.2, Pro-B-Type Natriuretic Peptide 6912H Height (Feet): 5 Height (Inches): 5.00 Weight (Pounds): 180 Objective exam stable KENN FLORES Nov 07, 2016 09:37
[2016-11-07 11:44] VITALS: BP 126/72
--- NOTE | 2016-11-07 12:18 | Infectious Diseases Prog Note ---
Assessment/Plan Assessment/Plan A; Cellulitis of legs, purulent Sever CHF, EF=10% Lactic acidosis Acute renal failure DM HPN Hyponatremia P; continue Zyvox & Cefepime will f/u cultures Subjective ROS Limited/Unobtainable: Yes Respiratory: Reports: shortness of breath Allergies: Coded Allergies: No Known Allergies (Unverified , 11/05/16) Objective Vital Signs Last 24 Hour Vital Signs Date Time Temp Pulse Resp B/P (MAP) Pulse Ox O2 Delivery O2 Flow Rate FiO2 11/07/16 11:44 96.9 98 20 126/72 99 Nasal Cannula 2.0 11/07/16 08:19 96.6 94 20 108/65 100 4.0 11/07/16 08:00 94 11/07/16 06:18 134/56 11/07/16 04:04 98.6 107 18 112/68 98 Nasal Cannula 11/07/16 04:00 96 11/07/16 00:16 98.6 104 18 104/75 98 Nasal Cannula 11/07/16 00:00 104 11/06/16 20:48 98.6 102 18 100/65 98 Nasal Cannula 11/06/16 20:00 106 11/06/16 16:00 98.9 65 19 107/65 100 Nasal Cannula 11/06/16 16:00 108 Height (Feet): 5 Height (Inches): 5.00 Weight (Pounds): 180 General Appearance: no acute distress HEENT: mucous membranes moist Respiratory/Chest: lungs clear Cardiovascular: normal rate Abdomen: soft, non tender Genitourinary: other - scrotal & peile edema Extremities: other - severe edema of legs Skin: ulcers, other - opened blisters on legs Neurologic/Psychiatric: other - sleeping Microbiology Date/Time Source Procedure Growth Status 11/05/16 14:40 Blood Blood Culture - Preliminary NO GROWTH AFTER 24 HOURS Resulted 11/05/16 14:30 Blood Blood Culture - Preliminary NO GROWTH AFTER 24 HOURS Resulted 11/05/16 18:00 Nasal Nares MRSA Culture - Final NO METHICILLIN RESISTANT STAPH AUREUS... Complete 11/05/16 21:00 Leg Right Gram Stain - Final Resulted 11/05/16 21:00 Leg Right Wound Culture - Preliminary Resulted 11/05/16 18:00 Rectum VRE Culture - Final NO VANCOMYCIN RESISTANT ENTEROCOCCUS ... Complete Laboratory Tests Test 11/06/16 14:00 11/07/16 05:00 Urine Color Yellow Urine Appearance Clear Urine pH 5 (4.5-8.0) Urine Specific [place] 1.020 (1.005-1.035) Urine Protein 2+ (NEGATIVE) H Urine Glucose (UA) Negative (NEGATIVE) Urine Ketones Negative (NEGATIVE) Urine Occult Blood Negative (NEGATIVE) Urine Nitrite Negative (NEGATIVE) Urine Bilirubin Negative (NEGATIVE) Urine Urobilinogen Normal MG/DL (0.0-1.0) Urine Leukocyte Esterase Negative (NEGATIVE) Urine RBC 0-2 /HPF (0 - 0) H Urine WBC 0-2 /HPF (0 - 0) Urine Squamous Epithelial Cells None /LPF (NONE/OCC) Urine Bacteria Few /HPF (NONE) Urine Hyaline Casts 10-15 /LPF (NONE) H Urine Fine Granular Casts /LPF (NONE) Urine Osmolality 406 mOsm/kg (429-449) L Urine Random Total Protein 31 mg/dL Urine Random Sodium 10 mmol/L Urine Creatinine 145.8 mg/dL White Blood Count 7.9 K/UL (4.8-10.8) Red Blood Count 4.63 M/UL (4.70-6.10) L Hemoglobin 14.3 G/DL (14.2-18.0) Hematocrit 43.6 % (42.0-52.0) Mean Corpuscular Volume 94 FL (80-99) Mean Corpuscular Hemoglobin 30.8 PG (27.0-31.0) Mean Corpuscular Hemoglobin Concent 32.7 G/DL (32.0-36.0) Red Cell Distribution Width 13.6 % (11.6-14.8) Platelet Count 198 K/UL (150-450) Mean Platelet Volume 7.2 FL (6.5-10.1) Neutrophils (%) (Auto) 60.2 % (45.0-75.0) Lymphocytes (%) (Auto) 23.9 % (20.0-45.0) Monocytes (%) (Auto) 12.0 % (1.0-10.0) H Eosinophils (%) (Auto) 2.1 % (0.0-3.0) Basophils (%) (Auto) 1.9 % (0.0-2.0) Sodium Level 123 mEQ/L (135-145) L Potassium Level 4.5 mEQ/L (3.4-4.9) Chloride Level 82 mEQ/L (98-107) L Carbon Dioxide Level 19 mEQ/L (20-30) L Anion Gap 22 (5-15) H Blood Urea Nitrogen 38 mg/dL (7-23) H Creatinine 1.5 mg/dL (0.7-1.2) H Estimat Glomerular Filtration Rate 47.1 mL/min (>60) Glucose Level 123 mg/dL (74-106) H Calcium Level 9.2 mg/dL (8.6-10.2) Pro-B-Type Natriuretic Peptide 6912 pg/mL (0-125) H Current Medications Medications (Trade) Dose Ordered Sig/Jonny Route PRN Reason Start Time Stop Time Status Last Admin Dose Admin Acetaminophen (Tylenol) 650 mg Q4H PRN ORAL fever, mild pain, headache 11/05/16 17:45 12/05/16 17:44 Acetaminophen/ Hydrocodone Bitart ([place] 5/325) 1 tab Q4H PRN ORAL Moderate Pain (Pain Scale 4-6) 11/05/16 20:00 11/12/16 19:59 11/07/16 06:18 Aspirin (ASA) 81 mg DAILY ORAL 11/05/16 18:00 12/05/16 17:59 11/07/16 08:55 Cefepime HCl 1 gm/ Dextrose 55 ml @ 110 mls/hr Q24H IVPB 11/05/16 23:00 11/12/16 22:59 11/06/16 23:25 Dextrose (Dextrose 50%) STAT PRN IV Hypoglycemia 11/05/16 17:45 12/05/16 17:44 Furosemide (Lasix) 40 mg Q12HR IV 11/05/16 23:00 12/05/16 22:59 11/07/16 08:55 Heparin Sodium (Porcine) (Heparin 5000 units/ml) 5,000 units EVERY 8 HOURS SUBQ 11/05/16 22:00 12/05/16 21:59 11/07/16 06:21 Hydralazine HCl (Apresoline) 10 mg Q6HR ORAL 11/07/16 06:00 12/07/16 05:59 11/07/16 06:18 Insulin Aspart (NovoLOG) BEFORE MEALS AND HS SUBQ 11/05/16 21:00 12/05/16 20:59 11/07/16 06:22 Linezolid (Zyvox) 600 mg EVERY 12 HOURS ORAL 11/06/16 21:00 11/11/16 20:59 11/07/16 08:55 Lorazepam (Ativan) 0.5 mg Q8H PRN ORAL anxiety 11/05/16 17:45 11/12/16 17:44 11/06/16 09:07 Magnesium Hydroxide (Mom) 30 ml HSPRN PRN ORAL Constipation 11/05/16 21:00 12/05/16 20:59 Ondansetron HCl (Zofran) 4 mg Q6H PRN IVP Nausea & Vomiting 11/07/16 09:00 12/07/16 08:59 11/07/16 08:55 Tamsulosin HCl (Flomax) 0.4 mg BEDTIME ORAL 11/06/16 21:00 12/06/16 20:59 11/06/16 21:23 JACE DELONG Nov 07, 2016 12:18
--- NOTE | 2016-11-07 13:13 | Nephrology Progress Note ---
Assessment/Plan Problem List: (1) Anasarca (2) Hyponatremia (3) Urinary retention (4) ARF (acute renal failure) (5) Bilateral lower leg cellulitis (6) CHF exacerbation Plan continue fluid restriction, increase lasix, Rx cellulitis Subjective Constitutional: Reports: weakness HEENT: Reports: no symptoms Genitourinary: Reports: incontinence Neurologic/Psychiatric: Reports: pre-existing deficit Subjective weak in bed alert Objective Objective Last 24 Hour Vital Signs Date Time Temp Pulse Resp B/P (MAP) Pulse Ox O2 Delivery O2 Flow Rate FiO2 11/07/16 12:15 126/72 11/07/16 11:44 96.9 98 20 126/72 99 Nasal Cannula 2.0 11/07/16 08:19 96.6 94 20 108/65 100 4.0 11/07/16 08:00 94 11/07/16 06:18 134/56 11/07/16 04:04 98.6 107 18 112/68 98 Nasal Cannula 11/07/16 04:00 96 11/07/16 00:16 98.6 104 18 104/75 98 Nasal Cannula 11/07/16 00:00 104 11/06/16 20:48 98.6 102 18 100/65 98 Nasal Cannula 11/06/16 20:00 106 11/06/16 16:00 98.9 65 19 107/65 100 Nasal Cannula 11/06/16 16:00 108 Intake and Output 11/07/16 11/08/16 19:00 07:00 Intake Total 120 ml Balance 120 ml Intake Oral 120 ml Laboratory Tests 11/06/16 14:00: Urine Color Yellow, Urine Appearance Clear, Urine pH 5, Urine Specific [place] 1.020, Urine Protein 2+H, Urine Glucose (UA) Negative, Urine Ketones Negative, Urine Occult Blood Negative, Urine Nitrite Negative, Urine Bilirubin Negative, Urine Urobilinogen Normal, Urine Leukocyte Esterase Negative, Urine RBC 0-2H, Urine WBC 0-2, Urine Squamous Epithelial Cells None, Urine Bacteria Few, Urine Hyaline Casts 10-15H, Urine Fine Granular Casts , Urine Osmolality 406L, Urine Random Total Protein 31, Urine Random Sodium 10, Urine Creatinine 145.8 11/07/16 05:00: White Blood Count 7.9, Red Blood Count 4.63L, Hemoglobin 14.3, Hematocrit 43.6, Mean Corpuscular Volume 94, Mean Corpuscular Hemoglobin 30.8, Mean Corpuscular Hemoglobin Concent 32.7, Red Cell Distribution Width 13.6, Platelet Count 198, Mean Platelet Volume 7.2, Neutrophils (%) (Auto) 60.2, Lymphocytes (%) (Auto) 23.9, Monocytes (%) (Auto) 12.0H, Eosinophils (%) (Auto) 2.1, Basophils (%) ( Auto) 1.9, Sodium Level 123L, Potassium Level 4.5, Chloride Level 82L, Carbon Dioxide Level 19L, Anion Gap 22H, Blood Urea Nitrogen 38H, Creatinine 1.5H, Estimat Glomerular Filtration Rate 47.1, Glucose Level 123H, Calcium Level 9.2, Pro-B-Type Natriuretic Peptide 6912H Height (Feet): 5 Height (Inches): 5.00 Weight (Pounds): 180 General Appearance: obese EENT: normal ENT inspection Neck: normal alignment Cardiovascular: normal rate, regular rhythm Respiratory/Chest: decreased breath sounds Abdomen: non tender, soft Extremities: severe edema Neurologic: neurologist II-XII grossly normal Objective phimosis, cortez in place ADRIANA WILKINS Nov 07, 2016 13:13
[2016-11-07 15:29] VITALS: BP 111/65
--- NOTE | 2016-11-07 15:52 | Diagnostic Imaging Report ---
Indication: Abnormal renal function test, hypertension, swelling Technique: Grayscale and duplex images of the kidneys, retroperitoneum, and bladder were obtained. Comparison:Than Findings: Right kidney measures 9.5 cm in length. Left kidney measures 11 cm in length. Both kidneys demonstrate normal echogenicity. No hydronephrosis. There is a 2.1 cm cyst coming off of the interpolar region of the left kidney. Normal inferior vena cava. Bladder is empty, contains a Ward catheter. Impression: Negative for hydronephrosis Incidental finding of left renal cyst Empty bladder containing a Ward catheter.
[2016-11-07 20:00] VITALS: BP 109/65
[2016-11-07] MEDS: Tamsulosin 0.4mg cap ORAL SCH (20:06)
[2016-11-07] MEDS: Cefepime HCl 1 GM in D5W 55 ML IVPB SCH (22:03)
[2016-11-08] VITALS: BP 106/62
[2016-11-08] MEDS: HydrALAZINE 10mg Tab ORAL SCH ×4 (00:03→18:00)
[2016-11-08 04:00] VITALS: BP 101/63
[2016-11-08] MEDS: Heparin 5000 units/ml inj SUBQ SCH ×3 (06:01→21:18)
[2016-11-08] MEDS: Insulin NovoLOG Flexpen S/S (Mod) SUBQ SCH ×4 (06:02→21:19)
[2016-11-08 07:53] LABS: BASOPHILS % (AUTO) 1.5 % (0.0-2.0); EOSINOPHILS % (AUTO) 1.6 % (0.0-3.0); LYMPHOCYTES % (AUTO) 20.2 % (20.0-45.0); MEAN CORPUSCULAR HEMOGLOBIN 31.6 PG (27.0-31.0); MEAN CORPUSCULAR HGB CONC 33.2 G/DL (32.0-36.0); MEAN CORPUSCULAR VOLUME 95 FL (80-99); MEAN PLATELET VOLUME 7.8 FL (6.5-10.1); MONOCYTES % (AUTO) 9.1 % (1.0-10.0); NEUTROPHILS % (AUTO) 67.6 % (45.0-75.0); PLATELET COUNT 190 K/UL (150-450); RED BLOOD COUNT 4.31 M/UL (4.70-6.10); RED CELL DISTRIBUTION WIDTH 14.4 % (11.6-14.8); WHITE BLOOD COUNT 6.4 K/UL (4.8-10.8)
[2016-11-08 08:00] VITALS: BP 106/60
[2016-11-08 08:13] LABS: CALCIUM 9.1 mg/dL (8.6-10.2); CREATININE 1.5 mg/dL (0.7-1.2); GLOMERULAR FILTRATION RATE 47.1 mL/min (>60); POTASSIUM 4.5 mEQ/L (3.4-4.9)
--- NOTE | 2016-11-08 08:55 | Pulmonology Progress Note ---
Assessment/Plan Assessment/Plan 1. New onset congestive heart failure. EF 10% 2. Diabetes. 3. Renal dysfunction. Cr 1.5 after cortez 4. Hyponatremia. Improved; Na 130 5. Hypochloremia. 6. Bilateral lower extremity cellulitis. 7. Lactic acidemia. Discussion: Continue IV antibiotics. The patient is on cefepime and vancomycin. The patient is Full Code. Discussed with the patient and . Continue cortez Await cardiac followup re: severely low EF Continue diuresis DC planning: pt declines SNF Subjective Interval Events: Feeling better Constitutional: Reports: no symptoms HEENT: Repors: no symptoms Respiratory: Reports: no symptoms Cardiovascular: Reports: no symptoms Gastrointestinal/Abdominal: Reports: no symptoms Genitourinary: Reports: no symptoms Allergies: Coded Allergies: No Known Allergies (Unverified , 11/05/16) Objective Last 24 Hour Vital Signs Date Time Temp Pulse Resp B/P (MAP) Pulse Ox O2 Delivery O2 Flow Rate FiO2 11/08/16 06:00 101/62 11/08/16 04:00 97.7 93 24 101/63 100 Nasal Cannula 4.0 11/08/16 04:00 99 11/08/16 00:03 106/62 11/08/16 00:00 104 11/08/16 00:00 97.7 106 20 106/62 100 Nasal Cannula 4.0 11/07/16 20:00 107 11/07/16 20:00 97.0 103 20 109/65 100 Nasal Cannula 4.0 11/07/16 17:45 105/68 11/07/16 16:00 94 11/07/16 15:29 97.2 67 20 111/65 Nasal Cannula 4.0 11/07/16 12:15 126/72 11/07/16 12:00 88 11/07/16 11:44 96.9 98 20 126/72 99 Nasal Cannula 2.0 General Appearance: no acute distress HEENT: normocephalic Respiratory/Chest: chest wall non-tender, lungs clear Cardiovascular: normal peripheral pulses, normal rate Abdomen: normal bowel sounds Microbiology Date/Time Source Procedure Growth Status 11/05/16 14:40 Blood Blood Culture - Preliminary NO GROWTH AFTER 48 HOURS Resulted 11/05/16 14:30 Blood Blood Culture - Preliminary NO GROWTH AFTER 48 HOURS Resulted 11/05/16 18:00 Nasal Nares MRSA Culture - Final NO METHICILLIN RESISTANT STAPH AUREUS... Complete 11/05/16 21:00 Leg Right Gram Stain - Final Resulted 11/05/16 21:00 Leg Right Wound Culture - Preliminary Resulted 11/05/16 18:00 Rectum VRE Culture - Final NO VANCOMYCIN RESISTANT ENTEROCOCCUS ... Complete Laboratory Tests 11/08/16 07:25: White Blood Count 6.4, Red Blood Count 4.31L, Hemoglobin 13.7L, Hematocrit 41.2L , Mean Corpuscular Volume 95, Mean Corpuscular Hemoglobin 31.6H, Mean Corpuscular Hemoglobin Concent 33.2, Red Cell Distribution Width 14.4, Platelet Count 190, Mean Platelet Volume 7.8, Neutrophils (%) (Auto) 67.6, Lymphocytes (% ) (Auto) 20.2, Monocytes (%) (Auto) 9.1, Eosinophils (%) (Auto) 1.6, Basophils ( %) (Auto) 1.5, Sodium Level 130L, Potassium Level 4.5, Chloride Level 87L, Carbon Dioxide Level 31H, Anion Gap 12, Blood Urea Nitrogen 36H, Creatinine 1.5H , Estimat Glomerular Filtration Rate 47.1, Glucose Level 164H, Uric Acid 11.6H, Calcium Level 9.1 Current Medications Medications (Trade) Dose Ordered Sig/Jonny Route PRN Reason Start Time Stop Time Status Last Admin Dose Admin Acetaminophen (Tylenol) 650 mg Q4H PRN ORAL fever, mild pain, headache 11/05/16 17:45 12/05/16 17:44 Acetaminophen/ Hydrocodone Bitart ([place] 5/325) 1 tab Q4H PRN ORAL Moderate Pain (Pain Scale 4-6) 11/05/16 20:00 11/12/16 19:59 11/07/16 20:00 Aspirin (ASA) 81 mg DAILY ORAL 11/05/16 18:00 12/05/16 17:59 11/07/16 08:55 Cefepime HCl 1 gm/ Dextrose 55 ml @ 110 mls/hr Q24H IVPB 11/05/16 23:00 11/12/16 22:59 11/07/16 22:03 Dextrose (Dextrose 50%) STAT PRN IV Hypoglycemia 11/05/16 17:45 12/05/16 17:44 Furosemide (Lasix) 40 mg Q6HR IV 11/07/16 18:00 12/05/16 22:59 11/08/16 05:59 Heparin Sodium (Porcine) (Heparin 5000 units/ml) 5,000 units EVERY 8 HOURS SUBQ 11/05/16 22:00 12/05/16 21:59 11/08/16 06:01 Hydralazine HCl (Apresoline) 10 mg Q6HR ORAL 11/07/16 06:00 12/07/16 05:59 11/08/16 00:03 Insulin Aspart (NovoLOG) BEFORE MEALS AND HS SUBQ 11/05/16 21:00 12/05/16 20:59 11/08/16 06:02 Linezolid (Zyvox) 600 mg EVERY 12 HOURS ORAL 11/06/16 21:00 11/11/16 20:59 11/07/16 20:06 Lorazepam (Ativan) 0.5 mg Q8H PRN ORAL anxiety 11/05/16 17:45 11/12/16 17:44 11/06/16 09:07 Magnesium Hydroxide (Mom) 30 ml HSPRN PRN ORAL Constipation 11/05/16 21:00 12/05/16 20:59 Ondansetron HCl (Zofran) 4 mg Q6H PRN IVP Nausea & Vomiting 11/07/16 09:00 12/07/16 08:59 11/07/16 20:01 Tamsulosin HCl (Flomax) 0.4 mg BEDTIME ORAL 11/06/16 21:00 12/06/16 20:59 11/07/16 20:06 Alin Alicea MD Nov 08, 2016 08:55
[2016-11-08] MEDS: Aspirin Baby 81mg ORAL SCH (09:33)
--- NOTE | 2016-11-08 09:43 | Urology Progress Note ---
Assessment/Plan Assessment/Plan 1. Urinary retention. 2. Penile edema. 3. Proteinuria. 4. Possible neurogenic bladder. 5. Renal insufficiency, acute on chronic, improved. cortez care flomax monitor renal fxn voiding trial later Subjective Allergies: Coded Allergies: No Known Allergies (Unverified , 11/05/16) Subjective all noted Objective Last 24 Hour Vital Signs Date Time Temp Pulse Resp B/P (MAP) Pulse Ox O2 Delivery O2 Flow Rate FiO2 11/08/16 08:00 97.0 91 18 106/60 91 Nasal Cannula 5.0 11/08/16 06:00 101/62 11/08/16 04:00 97.7 93 24 101/63 100 Nasal Cannula 4.0 11/08/16 04:00 99 11/08/16 00:03 106/62 11/08/16 00:00 104 11/08/16 00:00 97.7 106 20 106/62 100 Nasal Cannula 4.0 11/07/16 20:00 107 11/07/16 20:00 97.0 103 20 109/65 100 Nasal Cannula 4.0 11/07/16 17:45 105/68 11/07/16 16:00 94 11/07/16 15:29 97.2 67 20 111/65 Nasal Cannula 4.0 11/07/16 12:15 126/72 11/07/16 12:00 88 11/07/16 11:44 96.9 98 20 126/72 99 Nasal Cannula 2.0 Microbiology Date/Time Source Procedure Growth Status 11/05/16 14:40 Blood Blood Culture - Preliminary NO GROWTH AFTER 48 HOURS Resulted 11/05/16 18:00 Nasal Nares MRSA Culture - Final NO METHICILLIN RESISTANT STAPH AUREUS... Complete 11/05/16 21:00 Leg Right Gram Stain - Final Resulted 11/05/16 21:00 Leg Right Wound Culture - Preliminary Resulted Current Medications Medications (Trade) Dose Ordered Sig/Jonny Route PRN Reason Start Time Stop Time Status Last Admin Dose Admin Acetaminophen (Tylenol) 650 mg Q4H PRN ORAL fever, mild pain, headache 11/05/16 17:45 12/05/16 17:44 Acetaminophen/ Hydrocodone Bitart ([place] 5/325) 1 tab Q4H PRN ORAL Moderate Pain (Pain Scale 4-6) 11/05/16 20:00 11/12/16 19:59 11/07/16 20:00 Aspirin (ASA) 81 mg DAILY ORAL 11/05/16 18:00 12/05/16 17:59 11/08/16 09:33 Cefepime HCl 1 gm/ Dextrose 55 ml @ 110 mls/hr Q24H IVPB 11/05/16 23:00 11/12/16 22:59 11/07/16 22:03 Dextrose (Dextrose 50%) STAT PRN IV Hypoglycemia 11/05/16 17:45 12/05/16 17:44 Furosemide (Lasix) 40 mg Q6HR IV 11/07/16 18:00 12/05/16 22:59 11/08/16 05:59 Heparin Sodium (Porcine) (Heparin 5000 units/ml) 5,000 units EVERY 8 HOURS SUBQ 11/05/16 22:00 12/05/16 21:59 11/08/16 06:01 Hydralazine HCl (Apresoline) 10 mg Q6HR ORAL 11/07/16 06:00 12/07/16 05:59 11/08/16 00:03 Insulin Aspart (NovoLOG) BEFORE MEALS AND HS SUBQ 11/05/16 21:00 12/05/16 20:59 11/08/16 06:02 Linezolid (Zyvox) 600 mg EVERY 12 HOURS ORAL 11/06/16 21:00 11/11/16 20:59 11/08/16 09:33 Lorazepam (Ativan) 0.5 mg Q8H PRN ORAL anxiety 11/05/16 17:45 11/12/16 17:44 11/06/16 09:07 Magnesium Hydroxide (Mom) 30 ml HSPRN PRN ORAL Constipation 11/05/16 21:00 12/05/16 20:59 Ondansetron HCl (Zofran) 4 mg Q6H PRN IVP Nausea & Vomiting 11/07/16 09:00 12/07/16 08:59 11/07/16 20:01 Tamsulosin HCl (Flomax) 0.4 mg BEDTIME ORAL 11/06/16 21:00 12/06/16 20:59 11/07/16 20:06 Laboratory Tests 11/08/16 07:25: White Blood Count 6.4, Red Blood Count 4.31L, Hemoglobin 13.7L, Hematocrit 41.2L , Mean Corpuscular Volume 95, Mean Corpuscular Hemoglobin 31.6H, Mean Corpuscular Hemoglobin Concent 33.2, Red Cell Distribution Width 14.4, Platelet Count 190, Mean Platelet Volume 7.8, Neutrophils (%) (Auto) 67.6, Lymphocytes (% ) (Auto) 20.2, Monocytes (%) (Auto) 9.1, Eosinophils (%) (Auto) 1.6, Basophils ( %) (Auto) 1.5, Sodium Level 130L, Potassium Level 4.5, Chloride Level 87L, Carbon Dioxide Level 31H, Anion Gap 12, Blood Urea Nitrogen 36H, Creatinine 1.5H , Estimat Glomerular Filtration Rate 47.1, Glucose Level 164H, Uric Acid 11.6H, Calcium Level 9.1 Height (Feet): 5 Height (Inches): 5.00 Weight (Pounds): 180 Objective exam stable KENN FLORES Nov 08, 2016 09:43
[2016-11-08] MEDS: Norco 5mg/325mg tab ORAL PRN ×2 (10:13→21:31)
[2016-11-08 12:00] VITALS: BP 110/67
--- NOTE | 2016-11-08 12:33 | Infectious Diseases Prog Note ---
Assessment/Plan Assessment/Plan antibiotics : linezolid, cefepime A 1. leg cellulitis bilaterally 2. renal failure improving 3. DM 4. HTN 5. CHF P 1. continue linezolid, cefepime 2. will follow up cultures Subjective Constitutional: Denies: fever, chills Respiratory: Denies: shortness of breath, dry cough Gastrointestinal/Abdominal: Reports: nausea, Denies: vomiting, diarrhea Musculoskeletal: Reports: pain Allergies: Coded Allergies: No Known Allergies (Unverified , 11/05/16) Objective Vital Signs Last 24 Hour Vital Signs Date Time Temp Pulse Resp B/P (MAP) Pulse Ox O2 Delivery O2 Flow Rate FiO2 11/08/16 12:00 110/67 11/08/16 08:00 97.0 91 18 106/60 91 Nasal Cannula 5.0 11/08/16 06:00 101/62 11/08/16 04:00 97.7 93 24 101/63 100 Nasal Cannula 4.0 11/08/16 04:00 99 11/08/16 00:03 106/62 11/08/16 00:00 104 11/08/16 00:00 97.7 106 20 106/62 100 Nasal Cannula 4.0 11/07/16 20:00 107 11/07/16 20:00 97.0 103 20 109/65 100 Nasal Cannula 4.0 11/07/16 17:45 105/68 11/07/16 16:00 94 11/07/16 15:29 97.2 67 20 111/65 Nasal Cannula 4.0 Height (Feet): 5 Height (Inches): 5.00 Weight (Pounds): 180 Respiratory/Chest: lungs clear Cardiovascular: normal rate, regular rhythm, no gallop/murmur Abdomen: soft, non tender Extremities: other - + edema bilaterally, right leg erythema Microbiology Date/Time Source Procedure Growth Status 11/05/16 14:40 Blood Blood Culture - Preliminary NO GROWTH AFTER 48 HOURS Resulted 11/05/16 14:30 Blood Blood Culture - Preliminary NO GROWTH AFTER 48 HOURS Resulted 11/05/16 18:00 Nasal Nares MRSA Culture - Final NO METHICILLIN RESISTANT STAPH AUREUS... Complete 11/05/16 21:00 Leg Right Gram Stain - Final Resulted 11/05/16 21:00 Leg Right Wound Culture - Preliminary Resulted 11/05/16 18:00 Rectum VRE Culture - Final NO VANCOMYCIN RESISTANT ENTEROCOCCUS ... Complete Laboratory Tests Test 11/08/16 07:25 White Blood Count 6.4 K/UL (4.8-10.8) Red Blood Count 4.31 M/UL (4.70-6.10) L Hemoglobin 13.7 G/DL (14.2-18.0) L Hematocrit 41.2 % (42.0-52.0) L Mean Corpuscular Volume 95 FL (80-99) Mean Corpuscular Hemoglobin 31.6 PG (27.0-31.0) H Mean Corpuscular Hemoglobin Concent 33.2 G/DL (32.0-36.0) Red Cell Distribution Width 14.4 % (11.6-14.8) Platelet Count 190 K/UL (150-450) Mean Platelet Volume 7.8 FL (6.5-10.1) Neutrophils (%) (Auto) 67.6 % (45.0-75.0) Lymphocytes (%) (Auto) 20.2 % (20.0-45.0) Monocytes (%) (Auto) 9.1 % (1.0-10.0) Eosinophils (%) (Auto) 1.6 % (0.0-3.0) Basophils (%) (Auto) 1.5 % (0.0-2.0) Sodium Level 130 mEQ/L (135-145) L Potassium Level 4.5 mEQ/L (3.4-4.9) Chloride Level 87 mEQ/L (98-107) L Carbon Dioxide Level 31 mEQ/L (20-30) H Anion Gap 12 (5-15) Blood Urea Nitrogen 36 mg/dL (7-23) H Creatinine 1.5 mg/dL (0.7-1.2) H Estimat Glomerular Filtration Rate 47.1 mL/min (>60) Glucose Level 164 mg/dL (74-106) H Uric Acid 11.6 mg/dL (3.0-7.5) H Calcium Level 9.1 mg/dL (8.6-10.2) Current Medications Medications (Trade) Dose Ordered Sig/Jonny Route PRN Reason Start Time Stop Time Status Last Admin Dose Admin Acetaminophen (Tylenol) 650 mg Q4H PRN ORAL fever, mild pain, headache 11/05/16 17:45 12/05/16 17:44 Acetaminophen/ Hydrocodone Bitart ([place] 5/325) 1 tab Q4H PRN ORAL Moderate Pain (Pain Scale 4-6) 11/05/16 20:00 11/12/16 19:59 11/08/16 10:13 Aspirin (ASA) 81 mg DAILY ORAL 11/05/16 18:00 12/05/16 17:59 11/08/16 09:33 Cefepime HCl 1 gm/ Dextrose 55 ml @ 110 mls/hr Q24H IVPB 11/05/16 23:00 11/12/16 22:59 11/07/16 22:03 Dextrose (Dextrose 50%) STAT PRN IV Hypoglycemia 11/05/16 17:45 12/05/16 17:44 Furosemide (Lasix) 40 mg Q6HR IV 11/07/16 18:00 12/05/16 22:59 11/08/16 12:18 Heparin Sodium (Porcine) (Heparin 5000 units/ml) 5,000 units EVERY 8 HOURS SUBQ 11/05/16 22:00 12/05/16 21:59 11/08/16 06:01 Hydralazine HCl (Apresoline) 10 mg Q6HR ORAL 11/07/16 06:00 12/07/16 05:59 11/08/16 00:03 Insulin Aspart (NovoLOG) BEFORE MEALS AND HS SUBQ 11/05/16 21:00 12/05/16 20:59 11/08/16 12:09 Linezolid (Zyvox) 600 mg EVERY 12 HOURS ORAL 11/06/16 21:00 11/11/16 20:59 11/08/16 09:33 Lorazepam (Ativan) 0.5 mg Q8H PRN ORAL anxiety 11/05/16 17:45 11/12/16 17:44 11/06/16 09:07 Magnesium Hydroxide (Mom) 30 ml HSPRN PRN ORAL Constipation 11/05/16 21:00 12/05/16 20:59 Ondansetron HCl (Zofran) 4 mg Q6H PRN IVP Nausea & Vomiting 11/07/16 09:00 12/07/16 08:59 11/07/16 20:01 Tamsulosin HCl (Flomax) 0.4 mg BEDTIME ORAL 9/18/17 21:00 12/06/16 20:59 11/07/16 20:06 BHUPINDER FORD Nov 08, 2016 12:33
--- NOTE | 2016-11-08 14:00 | Nephrology Progress Note ---
Assessment/Plan Problem List: (1) Anasarca (2) Hyponatremia (3) Urinary retention (4) ARF (acute renal failure) (5) Bilateral lower leg cellulitis (6) CHF exacerbation Assessment: low ef Plan continue fluid restriction, increase lasix,40 mg iv q 6 hr Rx cellulitis Subjective Constitutional: Reports: weakness HEENT: Reports: no symptoms Genitourinary: Reports: incontinence Neurologic/Psychiatric: Reports: no symptoms Subjective weak no resp distress Objective Objective Last 24 Hour Vital Signs Date Time Temp Pulse Resp B/P (MAP) Pulse Ox O2 Delivery O2 Flow Rate FiO2 11/08/16 12:00 97.3 87 20 110/67 100 Nasal Cannula 4.0 11/08/16 12:00 110/67 11/08/16 08:00 97.0 91 18 106/60 91 Nasal Cannula 5.0 11/08/16 06:00 101/62 11/08/16 04:00 97.7 93 24 101/63 100 Nasal Cannula 4.0 11/08/16 04:00 99 11/08/16 00:03 106/62 11/08/16 00:00 104 11/08/16 00:00 97.7 106 20 106/62 100 Nasal Cannula 4.0 11/07/16 20:00 107 11/07/16 20:00 97.0 103 20 109/65 100 Nasal Cannula 4.0 11/07/16 17:45 105/68 11/07/16 16:00 94 11/07/16 15:29 97.2 67 20 111/65 Nasal Cannula 4.0 Laboratory Tests 11/08/16 07:25: White Blood Count 6.4, Red Blood Count 4.31L, Hemoglobin 13.7L, Hematocrit 41.2L , Mean Corpuscular Volume 95, Mean Corpuscular Hemoglobin 31.6H, Mean Corpuscular Hemoglobin Concent 33.2, Red Cell Distribution Width 14.4, Platelet Count 190, Mean Platelet Volume 7.8, Neutrophils (%) (Auto) 67.6, Lymphocytes (% ) (Auto) 20.2, Monocytes (%) (Auto) 9.1, Eosinophils (%) (Auto) 1.6, Basophils ( %) (Auto) 1.5, Sodium Level 130L, Potassium Level 4.5, Chloride Level 87L, Carbon Dioxide Level 31H, Anion Gap 12, Blood Urea Nitrogen 36H, Creatinine 1.5H , Estimat Glomerular Filtration Rate 47.1, Glucose Level 164H, Uric Acid 11.6H, Calcium Level 9.1 Height (Feet): 5 Height (Inches): 5.00 Weight (Pounds): 180 General Appearance: no apparent distress, alert EENT: normal ENT inspection Neck: normal alignment Cardiovascular: normal rate, regular rhythm Respiratory/Chest: lungs clear, decreased breath sounds Abdomen: non tender Extremities: severe edema 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
[2016-11-08] MEDS: Tamsulosin 0.4mg cap ORAL SCH (21:16)
[2016-11-08] MEDS: Cefepime HCl 1 GM in D5W 55 ML IVPB SCH (23:00)
[2016-11-09] VITALS (8 sets, daily range): BP systolic 98–135; BP diastolic 52–73
[2016-11-09] MEDS: Cefepime HCl 1 GM in D5W 55 ML IVPB SCH (02:10)
[2016-11-09] MEDS: Nitroglycerin 2% oint pkt TOPIC SCH ×3 (06:00→18:00)
[2016-11-09] MEDS: HydrALAZINE 10mg Tab ORAL SCH ×5 (06:00→18:24)
[2016-11-09] MEDS: Insulin NovoLOG Flexpen S/S (Mod) SUBQ SCH ×4 (06:22→20:48)
[2016-11-09] MEDS: Heparin 5000 units/ml inj SUBQ SCH ×2 (06:23→15:06)
[2016-11-09] MEDS: Norco 5mg/325mg tab ORAL PRN ×3 (06:43→20:54)
--- NOTE | 2016-11-09 07:34 | Pulmonology Progress Note ---
Assessment/Plan Assessment/Plan 1. New onset congestive heart failure. EF 10% 2. Diabetes. 3. Renal dysfunction. Cr 1.5 after cortez 4. Hyponatremia. Improved; Na 130 5. Hypochloremia. 6. Bilateral lower extremity cellulitis. 7. Lactic acidemia. Discussion: Await decision by ID regarding choice of home abx. The patient is on cefepime and vancomycin. The patient is Full Code. Discussed with the patient and . Continue cortez Will dc home with cortez Await cardiac followup re: severely low EF Continue diuresis DC planning: pt declines SNF Will dc home with HH Check RA ABG May need home O2 Subjective Interval Events: Much improved Constitutional: Reports: no symptoms HEENT: Repors: no symptoms Respiratory: Reports: shortness of breath Cardiovascular: Reports: no symptoms Gastrointestinal/Abdominal: Reports: no symptoms Neurologic: Reports: no symptoms Hematologic: Reports: no symptoms Allergies: Coded Allergies: No Known Allergies (Unverified , 11/05/16) Objective Last 24 Hour Vital Signs Date Time Temp Pulse Resp B/P (MAP) Pulse Ox O2 Delivery O2 Flow Rate FiO2 11/09/16 06:35 97 18 102/52 100 Nasal Cannula 11/09/16 06:00 102/52 11/09/16 06:00 102/52 11/09/16 04:00 97.3 99 18 111/73 100 Nasal Cannula 11/09/16 04:00 97 11/09/16 00:00 96.3 103 20 107/69 100 Nasal Cannula 11/09/16 00:00 103/63 11/09/16 00:00 106 11/08/16 22:30 96.4 11/08/16 20:00 97.7 11/08/16 18:00 103/63 11/08/16 16:00 96.4 101 20 Room Air 11/08/16 16:00 100 11/08/16 12:00 97.3 87 20 110/67 100 Nasal Cannula 4.0 11/08/16 12:00 86 11/08/16 12:00 110/67 11/08/16 08:00 97.0 91 18 106/60 91 Nasal Cannula 5.0 11/08/16 08:00 95 General Appearance: no acute distress HEENT: normocephalic Respiratory/Chest: chest wall non-tender, decreased breath sounds Cardiovascular: normal peripheral pulses, normal rate Abdomen: normal bowel sounds, soft, non tender Current Medications Medications (Trade) Dose Ordered Sig/Jonny Route PRN Reason Start Time Stop Time Status Last Admin Dose Admin Acetaminophen (Tylenol) 650 mg Q4H PRN ORAL fever, mild pain, headache 11/05/16 17:45 12/05/16 17:44 Acetaminophen/ Hydrocodone Bitart ([place] 5/325) 1 tab Q4H PRN ORAL Moderate Pain (Pain Scale 4-6) 11/05/16 20:00 11/12/16 19:59 11/09/16 06:43 Allopurinol (Allopurinol) 300 mg DAILY ORAL 11/08/16 15:00 12/08/16 14:59 11/08/16 15:10 Aspirin (ASA) 81 mg DAILY ORAL 11/05/16 18:00 12/05/16 17:59 11/08/16 09:33 Cefepime HCl 1 gm/ Dextrose 55 ml @ 110 mls/hr Q24H IVPB 11/05/16 23:00 11/12/16 22:59 11/09/16 02:10 Dextrose (Dextrose 50%) STAT PRN IV Hypoglycemia 11/05/16 17:45 12/05/16 17:44 Furosemide (Lasix) 40 mg Q6HR IV 11/09/16 07:00 12/09/16 06:59 Heparin Sodium (Porcine) (Heparin 5000 units/ml) 5,000 units EVERY 8 HOURS SUBQ 11/05/16 22:00 12/05/16 21:59 11/09/16 06:23 Hydralazine HCl (Apresoline) 10 mg Q6HR ORAL 11/09/16 06:00 12/09/16 05:59 Insulin Aspart (NovoLOG) BEFORE MEALS AND HS SUBQ 11/05/16 21:00 12/05/16 20:59 11/09/16 06:22 Linezolid (Zyvox) 600 mg EVERY 12 HOURS ORAL 11/06/16 21:00 11/11/16 20:59 11/08/16 21:16 Lorazepam (Ativan) 0.5 mg Q8H PRN ORAL anxiety 11/05/16 17:45 11/12/16 17:44 11/06/16 09:07 Magnesium Hydroxide (Mom) 30 ml HSPRN PRN ORAL Constipation 11/05/16 21:00 12/05/16 20:59 11/08/16 21:29 Nitroglycerin (Nitro-Bid) 0.5 inch EVERY 6 HOURS TOPIC 11/09/16 06:00 12/09/16 05:59 Ondansetron HCl (Zofran) 4 mg Q6H PRN IVP Nausea & Vomiting 11/07/16 09:00 12/07/16 08:59 11/07/16 20:01 Tamsulosin HCl (Flomax) 0.4 mg BEDTIME ORAL 11/06/16 21:00 12/06/16 20:59 11/08/16 21:16 Alin Alicea MD Nov 09, 2016 07:34
[2016-11-09] MEDS ORDERED: FLOMAX0.4 MG ORAL (07:39)
[2016-11-09] MEDS ORDERED: NORCO 5-325 TA1 EACH ORAL (07:39)
[2016-11-09] MEDS ORDERED: APRESOLINE10 MG ORAL (07:39)
[2016-11-09] MEDS ORDERED: ASPIRIN81 MG ORAL (07:39)
[2016-11-09 08:00] LABS: BASOPHILS % (AUTO) 1.6 % (0.0-2.0); EOSINOPHILS % (AUTO) 1.5 % (0.0-3.0); LYMPHOCYTES % (AUTO) 23.2 % (20.0-45.0); MEAN CORPUSCULAR HEMOGLOBIN 31.2 PG (27.0-31.0); MEAN CORPUSCULAR HGB CONC 32.2 G/DL (32.0-36.0); MEAN CORPUSCULAR VOLUME 97 FL (80-99); MEAN PLATELET VOLUME 6.7 FL (6.5-10.1); MONOCYTES % (AUTO) 8.6 % (1.0-10.0); NEUTROPHILS % (AUTO) 65.1 % (45.0-75.0); PLATELET COUNT 195 K/UL (150-450); RED BLOOD COUNT 4.27 M/UL (4.70-6.10); RED CELL DISTRIBUTION WIDTH 14.3 % (11.6-14.8); WHITE BLOOD COUNT 5.9 K/UL (4.8-10.8)
[2016-11-09] MEDS ORDERED: Lactulose 20gm/30ml UDC ORAL ONE (08:00)
[2016-11-09 08:28] LABS: CALCIUM 9.1 mg/dL (8.6-10.2); CREATININE 1.3 mg/dL (0.7-1.2); GLOMERULAR FILTRATION RATE 55.6 mL/min (>60); POTASSIUM 3.6 mEQ/L (3.4-4.9)
--- NOTE | 2016-11-09 08:49 | Urology Progress Note ---
Assessment/Plan Assessment/Plan 1. Urinary retention. 2. Penile edema. 3. Proteinuria. 4. Possible neurogenic bladder. 5. Renal insufficiency, acute on chronic, improved. cortez care flomax monitor renal fxn voiding trial later Subjective Allergies: Coded Allergies: No Known Allergies (Unverified , 11/05/16) Subjective all noted Objective Last 24 Hour Vital Signs Date Time Temp Pulse Resp B/P (MAP) Pulse Ox O2 Delivery O2 Flow Rate FiO2 11/09/16 06:35 97 18 102/52 100 Nasal Cannula 11/09/16 06:00 102/52 11/09/16 06:00 102/52 11/09/16 04:00 97.3 99 18 111/73 100 Nasal Cannula 11/09/16 04:00 97 11/09/16 00:00 96.3 103 20 107/69 100 Nasal Cannula 11/09/16 00:00 103/63 11/09/16 00:00 106 11/08/16 22:30 96.4 11/08/16 20:00 97.7 11/08/16 18:00 103/63 11/08/16 16:00 96.4 101 20 Room Air 11/08/16 16:00 100 11/08/16 12:00 97.3 87 20 110/67 100 Nasal Cannula 4.0 11/08/16 12:00 86 11/08/16 12:00 110/67 Microbiology Date/Time Source Procedure Growth Status 11/05/16 14:40 Blood Blood Culture - Preliminary NO GROWTH AFTER 72 HOURS Resulted 11/05/16 18:00 Nasal Nares MRSA Culture - Final NO METHICILLIN RESISTANT STAPH AUREUS... Complete 11/05/16 21:00 Leg Right Gram Stain - Final Resulted 11/05/16 21:00 Leg Right Wound Culture - Preliminary Resulted Current Medications Medications (Trade) Dose Ordered Sig/Jonny Route PRN Reason Start Time Stop Time Status Last Admin Dose Admin Acetaminophen (Tylenol) 650 mg Q4H PRN ORAL fever, mild pain, headache 11/05/16 17:45 12/05/16 17:44 Acetaminophen/ Hydrocodone Bitart ([place] 5/325) 1 tab Q4H PRN ORAL Moderate Pain (Pain Scale 4-6) 11/05/16 20:00 11/12/16 19:59 11/09/16 06:43 Allopurinol (Allopurinol) 300 mg DAILY ORAL 11/08/16 15:00 12/08/16 14:59 11/08/16 15:10 Aspirin (ASA) 81 mg DAILY ORAL 11/05/16 18:00 12/05/16 17:59 11/08/16 09:33 Dextrose (Dextrose 50%) STAT PRN IV Hypoglycemia 11/05/16 17:45 12/05/16 17:44 Docusate Sodium (Colace) 100 mg TWICE A DAY ORAL 11/09/16 09:00 12/09/16 08:59 Doxycycline Monohydrate (Vibramycin) 100 mg EVERY 12 HOURS ORAL 11/09/16 09:00 11/16/16 08:59 Furosemide (Lasix) 40 mg Q6HR IV 11/09/16 07:00 12/09/16 06:59 Heparin Sodium (Porcine) (Heparin 5000 units/ml) 5,000 units EVERY 8 HOURS SUBQ 11/05/16 22:00 12/05/16 21:59 11/09/16 06:23 Hydralazine HCl (Apresoline) 10 mg Q6HR ORAL 11/09/16 06:00 12/09/16 05:59 Insulin Aspart (NovoLOG) BEFORE MEALS AND HS SUBQ 11/05/16 21:00 12/05/16 20:59 11/09/16 06:22 Lorazepam (Ativan) 0.5 mg Q8H PRN ORAL anxiety 11/05/16 17:45 11/12/16 17:44 11/06/16 09:07 Magnesium Hydroxide (Mom) 30 ml HSPRN PRN ORAL Constipation 11/05/16 21:00 12/05/16 20:59 11/08/16 21:29 Nitroglycerin (Nitro-Bid) 0.5 inch EVERY 6 HOURS TOPIC 11/09/16 06:00 12/09/16 05:59 Ondansetron HCl (Zofran) 4 mg Q6H PRN IVP Nausea & Vomiting 11/07/16 09:00 12/07/16 08:59 11/07/16 20:01 Tamsulosin HCl (Flomax) 0.4 mg BEDTIME ORAL 11/06/16 21:00 12/06/16 20:59 11/08/16 21:16 Laboratory Tests 11/09/16 07:10: White Blood Count 5.9, Red Blood Count 4.27L, Hemoglobin 13.3L, Hematocrit 41.3L , Mean Corpuscular Volume 97, Mean Corpuscular Hemoglobin 31.2H, Mean Corpuscular Hemoglobin Concent 32.2, Red Cell Distribution Width 14.3, Platelet Count 195, Mean Platelet Volume 6.7, Neutrophils (%) (Auto) 65.1, Lymphocytes (% ) (Auto) 23.2, Monocytes (%) (Auto) 8.6, Eosinophils (%) (Auto) 1.5, Basophils ( %) (Auto) 1.6, Sodium Level 133L, Potassium Level 3.6, Chloride Level 88L, Carbon Dioxide Level 29, Anion Gap 16H, Blood Urea Nitrogen 32H, Creatinine 1.3H , Estimat Glomerular Filtration Rate 55.6, Glucose Level 146H, Calcium Level 9.1 , Pro-B-Type Natriuretic Peptide 6424H Height (Feet): 5 Height (Inches): 5.00 Weight (Pounds): 180 Objective exam stable KENN FLORES Nov 09, 2016 08:49
[2016-11-09] MEDS: Aspirin Baby 81mg ORAL SCH (08:54)
[2016-11-09] MEDS: Docusate 100mg cap ORAL SCH ×2 (08:54→18:22)
--- NOTE | 2016-11-09 09:02 | Progress Note ---
DATE: 11/07/2016 CARDIOLOGY PROGRESS NOTE Subjective: The patient has significant swelling of his genitourinary region. Ward catheter was ultimately placed this afternoon by urologist. The patient continues on intravenous diuretics. Blood pressure range remains in the 100 to 110 systolic range. Monitored rhythm sinus with occasional ventricular ectopics. OBJECTIVE: NECK: Jugular venous pressure elevated. LUNGS: With few rales. Cardiac: Regular rhythm and rate. Normal S1 and S2. There is a 2/6 holosystolic murmur at the apex. Extremities: Remain with 3 to 4+ weeping bilateral edema in the lower extremities and erythematous changes. LABORATORY DATA: Reviewed. IMPRESSION: 1. Severe cardiomyopathy with ejection fraction of 10%. 2. Acute on chronic systolic congestive heart failure with component of cardiogenic shock. 3. Multiple electrolyte abnormalities. 4. Obstructive uropathy. 5. Acute on chronic renal failure. 6. Type 2 diabetes mellitus. 7. Borderline blood pressure arranged due to poor cardiac output. PLAN: 1. Diuresis. 2. Recollect electrolytes as needed. 3. DVT prophylaxis. 4. Titrate anti-failure regimen with hydralazine and nitrates as tolerated by blood pressure. Ultimately, in the nursing home if performance status is improved and skin infections resolve, the patient could be a candidate for a biventricular defibrillator for both synchronization and primary prevention of sudden cardiac . Hemal Virgen M.D. DR: XIMENA JOB#: [id number] CC:
--- NOTE | 2016-11-09 09:02 | Progress Note ---
DATE: 11/08/2016 CARDIOLOGY PROGRESS NOTE Subjective: Urine output is improved with Ward catheter. Blood pressure remained tenuous, but patient is asymptomatic. OBJECTIVE: Vital Signs: Blood pressure 106/60, pulse 91, and respiratory rate 18. NECK: Jugular venous pressure elevated. LUNGS: Diminished breath sounds with rales. Heart: Regular rhythm and rate. Normal S1 and S2 with a 2/6 holosystolic murmur. Extremities: A 3+ pitting lower extremity edema with erythematous changes. Laboratory Data: White count 6.4 and hemoglobin 13.7. BUN 36, creatinine 1.5, and sodium 130. IMPRESSION: 1. Acute on chronic systolic congestive heart failure, clinically improved. 2. Acute on chronic renal failure, improved. 3. Multiple electrolyte abnormalities, improved. 4. Severe cardiomyopathy with systolic dysfunction. 5. Bilateral cellulitis. PLAN: 1. Diuresis. 2. Advance anti-failure regimen. 3. Antibiotics and skin care. 4. Monitor volume status and cardiorenal parameters. If performance status improves in the future and infection is cleared, the patient may be considered for synchronization and primary prevention therapy with a dual-chamber cardiac defibrillator pacing device. Hemal Virgen M.D. DR: XIMENA JOB#: [id number] CC:
[2016-11-09] MEDS ORDERED: NS 275ml ONE ×2 (11:15→14:35)
[2016-11-09] MEDS ORDERED: Tubing IV Secondary IV ONE ×2 (11:15→14:35)
[2016-11-09 11:33] LABS: ABG ALLEN TEST POSITIVE; ABG BASE EXCESS 3.6
--- NOTE | 2016-11-09 14:53 | Nephrology Progress Note ---
Assessment/Plan Assessment 1) CHF improved 2) Severe CMP with EF of 10% 3) Hyponatremia is better 4) ROWENA has improved Plan: Will need w/u for CMP Continue diuresis Subjective Subjective He is less, sob, feeling bettter, EF is 10%, creat is down to 1.3, Objective Objective Last 24 Hour Vital Signs Date Time Temp Pulse Resp B/P (MAP) Pulse Ox O2 Delivery O2 Flow Rate FiO2 11/09/16 13:58 114/71 11/09/16 12:00 97.0 92 20 111/65 98 Nasal Cannula 5.0 11/09/16 08:00 106 11/09/16 08:00 97.0 99 20 105/62 99 Nasal Cannula 5.0 11/09/16 06:35 97 18 102/52 100 Nasal Cannula 11/09/16 06:00 102/52 11/09/16 06:00 102/52 11/09/16 04:00 97.3 99 18 111/73 100 Nasal Cannula 11/09/16 04:00 97 11/09/16 00:00 96.3 103 20 107/69 100 Nasal Cannula 11/09/16 00:00 103/63 11/09/16 00:00 106 11/08/16 22:30 96.4 11/08/16 20:00 97.7 11/08/16 18:00 103/63 11/08/16 16:00 96.4 101 20 Room Air 11/08/16 16:00 100 Intake and Output 11/09/16 11/10/16 19:00 07:00 # Bowel Movements 1 Laboratory Tests 11/09/16 07:10: White Blood Count 5.9, Red Blood Count 4.27L, Hemoglobin 13.3L, Hematocrit 41.3L , Mean Corpuscular Volume 97, Mean Corpuscular Hemoglobin 31.2H, Mean Corpuscular Hemoglobin Concent 32.2, Red Cell Distribution Width 14.3, Platelet Count 195, Mean Platelet Volume 6.7, Neutrophils (%) (Auto) 65.1, Lymphocytes (% ) (Auto) 23.2, Monocytes (%) (Auto) 8.6, Eosinophils (%) (Auto) 1.5, Basophils ( %) (Auto) 1.6, Sodium Level 133L, Potassium Level 3.6, Chloride Level 88L, Carbon Dioxide Level 29, Anion Gap 16H, Blood Urea Nitrogen 32H, Creatinine 1.3H , Estimat Glomerular Filtration Rate 55.6, Glucose Level 146H, Calcium Level 9.1 , Pro-B-Type Natriuretic Peptide 6424H 11/09/16 11:25: Arterial Blood pH 7.530H, Arterial Blood Partial Pressure CO2 31.0L, Arterial Blood Partial Pressure O2 134.6H, Arterial Blood HCO3 25.6, Arterial Blood Oxygen Saturation 99.1H, Arterial Blood Base Excess 3.6, Magdaleno Test Positive Height (Feet): 5 Height (Inches): 5.00 Weight (Pounds): 180 General Appearance: WD/WN, no apparent distress EENT: PERRL/EOMI Neck: non-tender, normal alignment, normal inspection Cardiovascular: normal rate, JVD - high Respiratory/Chest: decreased breath sounds Abdomen: normal bowel sounds, non tender, soft Extremities: severe edema 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
[2016-11-09] MEDS: Tamsulosin 0.4mg cap ORAL SCH (20:48)
[2016-11-09 22:08] LABS: CREATININE 1.3 mg/dL (0.7-1.2); GLOMERULAR FILTRATION RATE 55.6 mL/min (>60)
[2016-11-09 22:44] LABS: CREATININE CLEARANCE,URINE 66 mL/min (71-151)
--- NOTE | 2016-11-10 10:31 | Progress Note ---
DATE: 11/09/2016 CARDIOLOGY PROGRESS NOTE Subjective: The patient has less shortness of breath. He notes being able to lie relatively flat in bed, although still with several pillows. His leg swelling is better. I have left a message with his daughter to discuss the patient's significant cardiomyopathy and long-term prognosis, which is poor. OBJECTIVE: Vital Signs: Blood pressure 111/65, pulse 92, respirations 20, and oxygen saturation on five liters 98%. NECK: Jugular venous pressure elevated. LUNGS: With diminished breath sounds and few rales. Cardiac: Regular rhythm and rate. Normal S1 and S2 with a 2/6 systolic apical murmur. ABDOMEN: Soft. EXTREMITIES: With 2+ to 3+ dependent edema and legs are wrapped. IMPRESSION: 1. Severe cardiomyopathy. 2. Acute on chronic systolic congestive heart failure. 3. Lower extremity cellulitis. 4. Low baseline blood pressure range due to poor cardiac output. PLAN: 1. Continue diuresis. 2. Continue up titration of hydralazine and isosorbide combination as tolerated by blood pressure. 3. Continue treatment for skin infection. 4. As noted previously, the patient should be considered for synchronization therapy with biventricular cardiac defibrillator device, which would also provide primary prevention for sudden cardiac . Hemal Virgen M.D. : USHA JOB#: [id number] CC:
--- NOTE | 2016-11-10 10:48 | Discharge Summary ---
Discharge Summary Hospital Course Date of Admission Nov 05, 2016 at 16:30 Date of Discharge Nov 09, 2016 at 21:19 Admitting Diagnosis CHF exacerbation/ LE cellulitis HPI Hank Kaur is a 65 year old male who was admitted on Nov 05, 2016 at 16: 30 for Chf Exacerbation/Le Cellulitis Hospital Course [id number] Discharge Discharge Disposition Patient was discharged to Home with Home Health(06) Discharge Diagnoses: Loli Prado NP Nov 10, 2016 10:48
--- NOTE | 2016-11-11 04:45 | Discharge Summary 2 SIG ---
DATE OF ADMISSION: 11/05/2016 DATE OF DISCHARGE: 11/09/2016 CONSULTANTS: 1. Hemal Virgen M.D. 2. Cj Pfeiffer M.D. 3. Davis Mock M.D. 4. Mikal Melgoza M.D. Brief Hospital Course: The patient is a 65-year-old male, who reported history of infection on his leg several weeks ago. He stated that he was bitten by a spider on the left ankle on 10/12/[address] [facility]. He was discharged on 10/16/2016. However, he returned back to the hospital following day. He was then discharged to a nursing facility with ongoing blistering on his lower extremities, which was getting worse and getting more short of breath. On evaluation at ED, laboratories showed no leukocytosis. BUN and creatinine were elevated to 37/2.0. Chest x-ray showed pulmonary congestion. He was tachycardic on initial presentation. He was admitted for CHF exacerbation, renal failure, cellulitis and sepsis. He was initially started on vancomycin and was discontinued by Infectious Disease specialist continued on cefepime and linezolid. ProBNP was almost 6000 with troponin negative. He was given IV diuretic therapy and underwent echocardiogram with left ventricular ejection fraction estimated to be 10%. There was global left ventricular hypokinesia, severe left ventricular enlargement and diastolic dysfunction grade 3. He had severe pulmonary hypertension and severe tricuspid and mitral regurgitation. He had difficult catheterization. The patient needed Ward catheter for adequate monitoring of I and Os. Dr. Melgzoa was consulted and was able to insert a 16-[place] Ward catheter. He was also given Flomax. Renal failure and hyponatremia possibly from obstruction due to phimosis and possibly related to diuretics. Renal ultrasound done was negative for hydronephrosis with an incidental finding of left renal cyst. He was given hydralazine and nitrates, and ultimately in long-term when skin infections resolve, the patient would be a good candidate for a biventricular defibrillator for both synchronization and primary prevention in sudden cardiac . Hyponatremia improved. The patient declined placement to SNF. He was eventually discharged home with home health. FINAL DIAGNOSES: 1. Acute on chronic systolic congestive heart failure. 2. Severe cardiomyopathy with ejection fraction 10%. 3. Hyponatremia. 4. Diabetes mellitus. 5. Bilateral lower extremity cellulitis. 6. Hypokalemia. 7. Lactic acidemia. 8. Urinary retention due to penile edema. 9. Acute kidney injury. DISPOSITION: The patient was discharged home with home health. DISCHARGE MEDICATIONS: Refer to medication list. Alin Alicea M.D. I have been assigned to dictate discharge summary on this account and I was not involved in the patient's management. Loli Prado N.P. DR: SOPHIE JOB#: [id number] CC: CLAIRE
--- NOTE | 2016-11-12 22:15 | Diagnostic Imaging Report ---
APPROVED REPORT CPT Code: 16579 Present Symptoms Lower Extremity Edema: Bilateral Shortness of breath Comments: Technically difficult study due to vessel depth ([id number] thigh and calf area). BILATERAL: Imaging reveals a patent deep venous system bilaterally. There is no evidence of thrombus within the common femoral, popliteal or tibial segments. The greater saphenous veins are also within normal limits. Doppler indicates normal spontaneous flow within these segments.
== END 2016-11-09 21:19 | disposition home health service (06) | DRG 291 ==
LOC: EDBD 14:07 → EMR 16:00 → 2E 16:30 → EDBEDREQ 17:01 → 2E 18:27
DX: I11.0 Hypertensive heart disease with heart failure (principal); R57.0 Cardiogenic shock; N17.9 Acute kidney failure, unspecified; E87.2 Acidosis; L03.115 Cellulitis of right lower limb; E87.1 Hypo-osmolality and hyponatremia; L03.116 Cellulitis of left lower limb; N13.8 Other obstructive and reflux uropathy; I42.9 Cardiomyopathy, unspecified; E87.8 Other disorders of electrolyte and fluid balance, not elsewhere classified; I50.23 Acute on chronic systolic (congestive) heart failure; E11.9 Type 2 diabetes mellitus without complications; E87.6 Hypokalemia; R33.8 Other retention of urine; N48.89 Other specified disorders of penis; E78.5 Hyperlipidemia, unspecified; I87.8 Other specified disorders of veins; T50.0X5A Adverse effect of mineralocorticoids and their antagonists, initial encounter; R00.0 Tachycardia, unspecified; Z79.4 Long term (current) use of insulin; Z87.891 Personal history of nicotine dependence; N47.1 Phimosis; S90.562S Insect bite (nonvenomous), left ankle, sequela
CPT/HCPCS: 36415; 36600; 71010; 76775; 80048; 80053; 81001; 81003; 81050; 82044; 82550; 82553; 82570; 82575; 82803; 82962; 83605; 83880; 83935; 84156; 84300; 84443; 84484; 84550; 85025; 87040; 87070; 87081; 87181; 87205; 93005; 93306; 93970; 99285; J1815; J2405